=== PATIENT | male | born 2000 | race African-American/Black ===

== ENCOUNTER 2024-04-22 15:10 | Emergency (ER) | payer MEDICAID, OTHER ==
[~2024-04-22] VITALS: Ht 188 cm; Wt 84.1 kg
[2024-04-22 15:31] VITALS: BP 139/101; PULSE 82; RESP 17; O2SAT 98
--- NOTE | 2024-04-22 16:03 | DVH ---
EXAM: CT Abdomen and Pelvis Without Intravenous Contrast CLINICAL INDICATION: rectal pain TECHNIQUE: Axial computed tomography images of the abdomen and pelvis without intravenous contrast. This CT exam was performed using one or more of the following dose reduction techniques: automated exposure control, adjustment of the mA and/or kV according to patient size, and/or use of iterative r econstruction technique. CONTRAST: COMPARISON: None FINDINGS: LUNG BASES: Unremarkable. No mass. No consolidation. ABDOMEN: LIVER: Hepatomegaly with fatty infiltration. GALLBLADDER AND BILE DUCTS: Unremarkable. No calcified stones. No ductal dilation. PANCREAS: Unremarkable. No ductal dilation. SPLEEN: Unremarkable. No splenomegaly. ADRENALS: Unremarkable. No mass. KIDNEYS AND URETERS: Unremarkable. No stones within either kidney. No hydronephrosis. STOMACH AND BOWEL: Fecal retention in the colon consistent with constipation. No rectal mass or ab scess. However, evaluation is suboptimal secondary to lack of IV contrast. No obstruction. PELVIS: APPENDIX: The appendix measures up to 6 mm in diameter with minimal surrounding fat stranding. This could represent evolving or resolving acute appendicitis. BLADDER: Unremarkable. No stones. REPRODUCTIVE: Unremarkable as visualized. ABDOMEN and PELVIS: INTRAPERITONEAL SPACE: Unremarkable. No free air. No significant fluid collection. BONES/JOINTS: No acute fracture. No dislocation. SOFT TISSUES: Unremarkable. VASCULATURE: Unremarkable. No abdominal aortic aneurysm. LYMPH NODES: Unremarkable. No enlarged lymph nodes. OTHER FINDINGS: . . . .. IMPRESSION: 1. The appendix measures up to 6 mm in diameter with minimal surrounding fat stranding. This could r epresent evolving or resolving acute appendicitis. 2. Hepatomegaly with fatty infiltration. 3. Fecal retention in the colon consistent with constipation. 4. No obstructive uropathy. 5. No rectal mass or abscess. However, evaluation is suboptimal secondary to lack of IV contrast.
[2024-04-22 18:22] LABS: Basophils # (auto) 0.1 10 ^3/uL (0-0.2); Basophils % (auto) 0.8 % (0.0-2.0); Eosinophils # (auto) 0.1 10 ^3/uL (0-0.8); Eosinophils % (auto) 0.6 % (0.0-7.0); Hematocrit 46.3 % (41.0-53.0); Hemoglobin 15.6 g/dL (13.5-17.5); Lymphocytes # (auto) 1.9 10 ^3/uL (0.4-5.4); Lymphocytes % (auto) 19.5 % (10.0-50.0); Mean Corpuscular Hemoglobin 31.5 pg (28.0-32.0); Mean Corpuscular Hgb Conc. 33.7 g/dL (32.0-36.0); Mean Corpuscular Volume 93.4 fL (80.0-100.0); Monocytes # (auto) 0.5 10 ^3/uL (0-1.3); Monocytes % (auto) 5.6 % (0.0-12.0); Neutrophils # (auto) 7.2 10 ^3/uL (1.6-8.6); Neutrophils % (auto) 73.5 % (37.0-80.0); Nucleated Red Blood Cells % 0.1 %; Platelet Count (auto) 199 10^3/uL (140-450); Red Blood Cells 4.96 10^6/uL (4.5-5.90); Red Cell Distribution Width 15.2 % (11.8-14.3); White Blood Cell 9.8 10^3/uL (4.4-10.8)
[2024-04-22 18:40] LABS: Alanine Aminotransferase 12 U/L (7-40); Anion Gap 6 (5-15); Aspartate Aminotransferase 14 U/L (13-40); BUN/Creatinine Ratio 8.3 (10.0-20.0); Blood Urea Nitrogen 11 mg/dL (9-23); Calcium 9.7 mg/dL (8.7-10.4); Carbon Dioxide 29 mmol/L (20-31); Chloride 103 mmol/L (98-107); Glucose 93 mg/dL (74-106); Potassium 3.8 mmol/L (3.5-5.1); Sodium 138 mmol/L (136-145)
[2024-04-22 18:41] LABS: Albumin 4.8 g/dL (3.2-4.8); Bilirubin, Total 0.6 mg/dL (0.2-1.0)
[2024-04-22 18:47] LABS: Alkaline Phosphatase 41 U/L (46-116)
--- NOTE | 2024-04-22 23:43 | ED.PDOC ---
General HPI Comments 23-year-old male complaining of rectal pain with defecation and has been going on since February. [facility] he has been to urgent care and ER and told he had anal fissure. [facility] he has been dealing with intermittent constipation. States pain is only with defecation. [facility] over the last week has been having some body chills so he decided to come in and have self examined. Nothing makes it better, nothing makes it worse. Chief Complaint: Body Pain Time Seen by MD: 15:25 Reviewed notes: Nurses Notes Allergies: Coded Allergies: NO KNOWN ALLERGIES (Unverified , 04/22/24) Information Source: Patient Mode of Arrival: Ambulatory Severity: Mild Past Medical History PAST MEDICAL HISTORY: Denies Surgical History: Denies all surgeries Family History Family History: Reviewed,noncontributory to illness, No family hx of Cancer, No family hx of DM, No family hx of Heart ahsan, No family hx of HTN, No family hx ofKidney ahsan, No family hx of Liver ahsan, No family hx of Lung ahsan, No family hx of Stroke Constitutional: denies: chills, diaphoresis, fatigue, fever, malaise, sweats, weakness, others EENTM: denies: blurred vision, double vision, ear bleeding, ear discharge, ear drainage, ear pain, ear ringing, eye pain, eye redness, hearing loss, mouth pain, mouth swelling, nasal discharge, nose bleeding, nose congestion, nose pain, photophobia, tearing, throat pain, throat swelling, voice changes, others Respiratory: denies: cough, hemoptysis, orthopnea, SOB at rest, shortness of breath, SOB with excertion, stridor, wheezing, others Cardiovascular: denies: chest pain, dizzy spells, diaphoresis, Dyspnea on exertion, edema, irregular heart beat, left arm pain, lightheadedness, palpitations, PND, syncope, others Gastrointestinal: denies: abdomen distended, abdominal pain, blood streaked bowels, constipated, diarrhea, dysphagia, difficulty swallowing, hematemesis, melena, nausea, poor appetite, poor fluid intake, rectal bleeding, rectal pain, vomiting, others Genitourinary: denies: burning, dysuria, flank pain, frequency, hematuria, incontinence, penile discharge, penile sore, pain, testicle pain, testicle s welling, urgency, others Neurological: denies: dizziness, fainting, headache, left sided numbness, left sided weakness, numbness, paresthesia, pre-existing deficit, right sided numbness, right sided weakness, seizure, speech problems, tingling, tremors, weakness, others Musculoskeletal: denies: back pain, gout, joint pain, joint swelling, muscle pain, muscle stiffness, neck pain, others Integumetry: denies: bruises, change in color, change in hair/nails, dryness, laceration, lesions, lumps, rash, wounds, others Allergic/Immunocompromised: denies: Difficulty Healing, Frequent Infections, Hives, Itching, others Physical Exam General Appearance: No Apparent Distress, Normal HEENT: Normal ENT Inspection, Pharynx Normal, TMs Normal Neck: Full Range of Motion, Non-Tender, Normal, Normal Inspection Respiratory: Chest Non-Tender, Lungs Clear, No Accessory Muscle Use, No Respiratory Distress, Normal Breath Sounds Cardiovascular: No Edema, No JVD, No Murmur, No Gallop, Normal Peripheral Pulses, Regular Rate/Rhythm Breast Exam: Deferred Gastrointestinal: No Organomegaly, Non Tender, No Pulsatile Mass, Normal Bowel Sounds, Soft Genitalia: Deferred Pelvic: Deferred Rectal: Deferred Extremities: No calf tenderness, Normal capillary refill, Normal inspection, Normal range of motion, Non-tender, No pedal edema Musculoskeletal : Apperance: Normal Neurologic: Alert, motion picture film examiner II-XII nml as Tested, No Motor Deficits, Normal Affect, Normal Mood, No Sensory Deficits Cerebellar Function: Normal Reflexes: Normal Skin: Dry, Normal Color, Warm Lymphatic: No Adenopathy Was a procedure done? Was a procedure done?: No Differential Diagnosis Kidney stone (Female): N/A Penile/Scrotal: Epidiymitis, Prostatitis Other Differential Diagnosis Constipation, hemorrhoids, anal fissure rectal abscess X-Ray, Labs, Meds, VS Vital Signs Date Time Temp Pulse Resp B/P (MAP) Pulse Ox O2 Delivery O2 Flow Rate FiO2 04/22/24 15:31 98.7 82 17 139/101 (114) 98 Lab Test 04/22/24 18:08 Range/Units White Blood Count 9.8 4.4-10.8 10^3/uL Red Blood Count 4.96 4.5-5.90 10^6/uL Hemoglobin 15.6 13.5-17.5 g/dL Hematocrit 46.3 41.0-53.0 % Mean Corpuscular Volume 93.4 80.0-100.0 fL Mean Corpuscular Hemoglobin 31.5 28.0-32.0 pg Mean Corpuscular Hemoglobin Concent 33.7 32.0-36.0 g/dL Red Cell Distribution Width 15.2 H 11.8-14.3 % Platelet Count 199 140-450 10^3/uL Mean Platelet Volume 8.5 6.9-10.8 fL Neutrophils (%) (Auto) 73.5 37.0-80.0 % Lymphocytes (%) (Auto) 19.5 10.0-50.0 % Monocytes (%) (Auto) 5.6 0.0-12.0 % Eosinophils (%) (Auto) 0.6 0.0-7.0 % Basophils (%) (Auto) 0.8 0.0-2.0 % Neutrophils # (Auto) 7.2 1.6-8.6 10 ^3/uL Lymphocytes # (Auto) 1.9 0.4-5.4 10 ^3/uL Monocytes # (Auto) 0.5 0-1.3 10 ^3/uL Eosinophils # (Auto) 0.1 0-0.8 10 ^3/uL Basophils # (Auto) 0.1 0-0.2 10 ^3/uL Nucleated Red Blood Cells 0.1 % Sodium Level 138 136-145 mmol/L Potassium Level 3.8 3.5-5.1 mmol/L Chloride Level 103 98-107 mmol/L Carbon Dioxide Level 29 20-31 mmol/L Anion Gap 6 5-15 Blood Urea Nitrogen 11 9-23 mg/dL Creatinine 1.33 H 0.700-1.30 mg/dL Glomerular Filtration Rate Calc 77 >90 mL/min BUN/Creatinine Ratio 8.3 L 10.0-20.0 Serum Glucose 93 74-106 mg/dL Calcium Level 9.7 8.7-10.4 mg/dL Total Bilirubin 0.6 0.2-1.0 mg/dL Aspartate Amino Transferase (AST) 14 13-40 U/L Alanine Aminotransferase (ALT) 12 7-40 U/L Alkaline Phosphatase 41 L 46-116 U/L Total Protein 7.0 5.7-8.2 g/dL Albumin 4.8 3.2-4.8 g/dL X-Ray, Labs, Meds, VS Comment Questionable appendicitis versus resolving appendicitis. Patient had no abdominal pain. No white count. Patient was no response in triage. Presumed eloped Time of 1ST Reevaluation: 23:43 Reevaluation 1ST: Unchanged Patient Education/Counseling: Diagnosis, Treatment Family Education/Counseling: Diagnosis Departure 1 Departure Time of Disposition: 23:42 Impression: Primary Impression: Constipation Qualified Codes: K59.01 - Slow transit constipation Disposition: 07 LEFT AWOL/ELOPED Condition: Stable Discharged With: Self Critical Care Note Critical Care Time?: No Stability Stability form required: No Heart Score Heart Score: Heart Score Response (Comments) Value History N/A 0 EKG N/A 0 Age N/A 0 Risk Factors N/A 0 Troponin N/A 0 Total 0 JENNY MANCINI Apr 22, 2024 23:43
[2024-04-23] MEDS ORDERED: METH-1181 PO (16:46)
== END 2024-04-22 23:22 | disposition left against medical advice (07) ==
LOC: ER 15:10
DX: K59.00 Constipation, unspecified (principal)
CPT/HCPCS: 36415; 74176; 80053; 85025

== ENCOUNTER 2024-04-23 14:18 | Emergency (ER) | payer MEDICAID ==
[~2024-04-23] VITALS: Ht 188 cm; Wt 88.2 kg
[2024-04-23 15:45] LABS: Basophils # (auto) 0 10 ^3/uL (0-0.2); Basophils % (auto) 0.5 % (0.0-2.0); Eosinophils # (auto) 0 10 ^3/uL (0-0.8); Eosinophils % (auto) 0.6 % (0.0-7.0); Lymphocytes # (auto) 1.2 10 ^3/uL (0.4-5.4); Lymphocytes % (auto) 17.2 % (10.0-50.0); Mean Corpuscular Hemoglobin 30.7 pg (28.0-32.0); Mean Corpuscular Hgb Conc. 33.2 g/dL (32.0-36.0); Mean Corpuscular Volume 92.3 fL (80.0-100.0); Monocytes # (auto) 0.5 10 ^3/uL (0-1.3); Monocytes % (auto) 7.4 % (0.0-12.0); Neutrophils # (auto) 5.2 10 ^3/uL (1.6-8.6); Neutrophils % (auto) 74.3 % (37.0-80.0); Nucleated Red Blood Cells % 0.1 %; Platelet Count (auto) 201 10^3/uL (140-450); Red Cell Distribution Width 15.2 % (11.8-14.3)
[2024-04-23 16:03] LABS: Alanine Aminotransferase 10 U/L (7-40); Albumin 4.7 g/dL (3.2-4.8); Anion Gap 6 (5-15); BUN/Creatinine Ratio 8.4 (10.0-20.0); Blood Urea Nitrogen 9 mg/dL (9-23); Carbon Dioxide 29 mmol/L (20-31); Chloride 105 mmol/L (98-107); Glucose 74 mg/dL (74-106); Lipase 31 U/L (12-53); Potassium 4.2 mmol/L (3.5-5.1); Sodium 140 mmol/L (136-145)
[2024-04-23 16:04] LABS: Bilirubin, Total 0.8 mg/dL (0.2-1.0); Total Protein 6.8 g/dL (5.7-8.2)
[2024-04-23 16:05] LABS: Alkaline Phosphatase 40 U/L (46-116); Aspartate Aminotransferase 12 U/L (13-40)
[2024-04-23] MEDS: IOHEXOL 300 MG/ML 100ML BOTTLE IJ ONE (16:13)
--- NOTE | 2024-04-23 16:17 | DVH ---
Exam: CT CT AB PEL WITH IV CON ONLY History: possible appendicitis TECHNIQUE: A digital answering service telephone operator image was obtained. During the uneventful, intravenous administration of c ontrast material, multislice data acquisition was obtained through the abdomen and pelvis. The data s et was subsequently reconstructed into axial images. Images were reviewed on a work station using a c ombination of axial and multiplanar using a variety of window levels and settings. 100 cc of Omnipaqu e 300 contrast was injected intravenously. All CT scans at this medical facility are performed using dose modulation techniques as appropriate t o a performed exam including the following:Automated exposure control was utilized; adjustment of the MA and/or KV according to patient size; and use of iterative reconstruction technique. Radiation Dose Information: CT Dose: CTDI volume is 6 mGy. Dose-length product is 390 mGy*cm Comparison: None FINDINGS: Theliver, gallbladder, pancreas, kidneys, adrenal glands, and spleen appear within normal limits. There is no evidence of abdominal lymphadenopathy. There is no free fluid or free air. The stomach grossly appears unremarkable. The small and large bowel loops demonstrate normal caliber and appear within normal limits.. The appendix is not readily seen in the right lower quadrant abdom en. There are no secondary signs of acute appendicitis. The abdominal aorta and IVC appear within normal limits. The bladder appears within normal limits the degree of distention. Pelvic organs is unremarkable. Th ere is no evidence of a pelvic mass or lymphadenopathy. There is no free fluid collection. Lung bases are clear. There is no acute osseous abnormality. IMPRESSION: 1. There is no acute process in the abdomen and pelvis. HS:Y
[2024-04-23] MEDS ORDERED: METH-1181 PO (16:46)
--- NOTE | 2024-04-23 16:48 | ED.PDOC ---
General HPI Comments This is a 23-year-old male with a MHx presents with a chief complaint of abdominal pain Obstructive January hand pain originated at the periumbilical region. Symptoms lasted one week then resolved spontaneously. The patient then reports abdominal pain redeveloped in March and the pain was located to the right lower quadr ant. Pain waxed and waned with no specific pattern. Symptoms aggravated in April and developed a pulsating sensation throughout his entire body. Pulsating sensation comes and goes. Described as moderate. Chief Complaint: Body Pain Time Seen by MD: 15:11 Reviewed notes: Nurses Notes, Medications, Allergies Allergies: Coded Allergies: NO KNOWN ALLERGIES (Unverified , 04/22/24) Home Meds Active Scripts Methocarbamol (Methocarbamol) 500 Mg Tab, 500 MG PO TIDP PRN for 10 Days, #30 TAB 0 Refills Prov:JAY JAY GUTIERREZ WEB PRESS OPERATOR ASSISTANT 04/23/24 Information Source: Patient Mode of Arrival: Ambulatory Past Medical History PAST MEDICAL HISTORY: Denies Surgical History: Denies all surgeries Family History Family History: Reviewed,noncontributory to illness, No family hx of Cancer, No family hx of DM, No family hx of Heart ahsan, No family hx of HTN, No family hx ofKidney ahsan, No family hx of Liver ahsan, No family hx of Lung ahsan, No family hx of Stroke All Other Systems: Reviewed and Negative (Per HPI) Physical Exam General Appearance: No Apparent Distress, Normal HEENT: Normal ENT Inspection, Pharynx Normal, TMs Normal Neck: Full Range of Motion, Non-Tender, Normal, Normal Inspection Respiratory: Chest Non-Tender, Lungs Clear, No Accessory Muscle Use, No Respiratory Distress, Normal Breath Sounds Cardiovascular: No Edema, No JVD, No Murmur, No Gallop, Normal Peripheral Pulses, Regular Rate/Rhythm Breast Exam: Deferred Gastrointestinal: No Organomegaly, Non Tender, No Pulsatile Mass, Normal Bowel Sounds, Soft Genitalia: Deferred Pelvic: Deferred Rectal: Deferred Extremities: No calf tenderness, Normal capillary refill, Normal inspection, Normal range of motion, Non-tender, No pedal edema Musculoskeletal : Apperance: Normal Neurologic: Alert, rn radiation II-XII nml as Tested, No Motor Deficits, Normal Affect, Normal Mood, No Sensory Deficits Cerebellar Function: Normal Reflexes: Normal Skin: Dry, Normal Color, Warm Lymphatic: No Adenopathy Was a procedure done? Was a procedure done?: No Differential Diagnosis Kidney stone (Female): Other Kidney stone (Male): Appendicitis train, Bowel obstruction, Strain, Urinary obstruction, Urolithiasis, Other X-Ray, Labs, Meds, VS Vital Signs Date Time Temp Pulse Resp B/P (MAP) Pulse Ox O2 Delivery O2 Flow Rate FiO2 04/23/24 16:58 98.7 86 16 138/82 (100) 98 98.7 04/23/24 16:58 88 16 98 Room Air 04/23/24 14:32 98.7 85 16 139/84 (102) 98 Lab Test 04/23/24 15:28 Range/Units White Blood Count 7.0 # 4.4-10.8 10^3/uL Red Blood Count 5.20 4.5-5.90 10^6/uL Hemoglobin 16.0 13.5-17.5 g/dL Hematocrit 48.0 41.0-53.0 % Mean Corpuscular Volume 92.3 80.0-100.0 fL Mean Corpuscular Hemoglobin 30.7 28.0-32.0 pg Mean Corpuscular Hemoglobin Concent 33.2 32.0-36.0 g/dL Red Cell Distribution Width 15.2 H 11.8-14.3 % Platelet Count 201 140-450 10^3/uL Mean Platelet Volume 8.6 6.9-10.8 fL Neutrophils (%) (Auto) 74.3 37.0-80.0 % Lymphocytes (%) (Auto) 17.2 10.0-50.0 % Monocytes (%) (Auto) 7.4 0.0-12.0 % Eosinophils (%) (Auto) 0.6 0.0-7.0 % Basophils (%) (Auto) 0.5 0.0-2.0 % Neutrophils # (Auto) 5.2 1.6-8.6 10 ^3/uL Lymphocytes # (Auto) 1.2 0.4-5.4 10 ^3/uL Monocytes # (Auto) 0.5 0-1.3 10 ^3/uL Eosinophils # (Auto) 0 0-0.8 10 ^3/uL Basophils # (Auto) 0 0-0.2 10 ^3/uL Nucleated Red Blood Cells 0.1 % Sodium Level 140 136-145 mmol/L Potassium Level 4.2 3.5-5.1 mmol/L Chloride Level 105 98-107 mmol/L Carbon Dioxide Level 29 20-31 mmol/L Anion Gap 6 5-15 Blood Urea Nitrogen 9 9-23 mg/dL Creatinine 1.07 0.700-1.30 mg/dL Glomerular Filtration Rate Calc 99 >90 mL/min BUN/Creatinine Ratio 8.4 L 10.0-20.0 Serum Glucose 74 74-106 mg/dL Calcium Level 10.0 8.7-10.4 mg/dL Total Bilirubin 0.8 0.2-1.0 mg/dL Aspartate Amino Transferase (AST) 12 L 13-40 U/L Alanine Aminotransferase (ALT) 10 7-40 U/L Alkaline Phosphatase 40 L 46-116 U/L Total Protein 6.8 5.7-8.2 g/dL Albumin 4.7 3.2-4.8 g/dL Lipase 31 12-53 U/L PATIENT: TAMMI DUNCAN IIIACCT: [id number]: [id number] : 2000 LOC: ER ROOM / BED: / AGE / SEX: 23 / M ADM STATUS: REG ER SERVICE 1508 ORDERING PHYSICIAN: JAY JAY GUTIERREZ NP PROCEDURE(s): ABPLIV - CT AB PEL WITH IV CON ONLY REASON: possible appendicitis ORDER NUMBER(s): [id number], ACCESSION NUMBER(s): [id number] Exam: CT CT AB PEL WITH IV CON ONLY History: possible appendicitis TECHNIQUE: A digital supervisor extruding department image was obtained. During the uneventful, intravenous administration of contrast material, multislice data acquisition was obtained through the abdomen and pelvis. The data set was subsequently reconstructed into axial images. Images were reviewed on a work station using a combination of axial and multiplanar using a variety of window levels and settings. 100 cc of Omnipaque 300 contrast was injected intravenously. All CT scans at this medical facility are performed using dose modulation techniques as appropriate to a performed exam including the following:Automated exposure control was utilized; adjustment of the MA and/or KV according to patient size; and use of iterative reconstruction technique. Radiation Dose Information: CT Dose: CTDI volume is 6 mGy. Dose-length product is 390 mGy*cm Comparison: None FINDINGS: Theliver, gallbladder, pancreas, kidneys, adrenal glands, and spleen appear within normal limits. There is no evidence of abdominal lymphadenopathy. There is no free fluid or free air. The stomach grossly appears unremarkable. The small and large bowel loops demonstrate normal caliber and appear within normal limits.. The appendix is not readily seen in the right lower quadrant abdomen. There are no secondary signs of acute appendicitis. The abdominal aorta and IVC appear within normal limits. The bladder appears within normal limits the degree of distention. Pelvic organs is unremarkable. There is no evidence of a pelvic mass or lymphadenopathy. There is no free fluid collection. Lung bases are clear. There is no acute osseous abnormality. IMPRESSION: 1. There is no acute process in the abdomen and pelvis. HS:Y ATED BY: ABISAI LIRA MD DICTATED DATE/TIME: 04/23/241614 SIGNED BY: ABISAI LIRA MD SIGNED DATE/TIME: 04/23/241614 CC: X-Ray, Labs, Meds, VS Comment The patient presented to the Emergency Department with abdominal pain. Work up demonstrated no obvious source for the patient's symptoms. History and ER workup do not suggest appendicitis, AAA, bowel ischemia, bowel perforation, bowel obstruction, constipation, cholecystitis, diverticulitis/diverticulosis, pneumonia, urinary tract infection/pyelonephritis, hernia or other genitourinary etiology. On reevaluation the patient is feeling better and is afebrile. VSS. Abdomen exam is benign. No peritoneal signs. Pain is not out of proportion. No pulsatile mass. No tenderness at McBurneys point. WBC CMP Lipase WNL I informed the patient of the test results, and they are comfortable being discharged home. The patient is being discharged home with PMD follow up. The patient has been advised to return to the Emergency Room immediately if they develop worsening pain, fever, vomiting, or weakness. On reevaluation, patient had symptomatic improvement. Patient is stable for discharge at this time. External notes reviewed. Test results and diagnostic imaging interpreted. All diagnostic findings, discharge care, education and instructions provided Follow-up with PCP in 2 to 3 days Patient verbalized understanding and agreed to treatment plan Vital signs stable, afebrile, no acute distress noted Patient ambulatory with strong steady gait Advised to return precautions for any new or worsening symptoms, return to ER immediately for re-evaluation Patient is aware that the purpose of this visit was for an acute medical emergency requiring emergent stabilization. Chronic conditions, including malignancies have not been ruled out. Patient is instructed to follow up with PCP as directed and discharge instructions for continued care and workup. If unable to arrange follow-up, patient is to return to the emergency department for reassessment. Patient (parent or legal guardian if applicable) was given verbal and written discharge instructions and acknowledges understanding. Time of 1ST Reevaluation: 16:30 Reevaluation 1ST: Improved Patient Education/Counseling: Diagnosis, Treatment Family Education/Counseling: Diagnosis, Treatment Departure 1 Departure Time of Disposition: 16:45 Impression: Primary Impression: Abdominal pain Qualified Codes: R10.84 - Generalized abdominal pain Additional Impression: Muscle spasm Disposition: HOME / SELF CARE / HOMELESS Condition: Stable e-Prescriptions Methocarbamol (Methocarbamol) 500 Mg Tab 500 MG PO TIDP PRN for 10 Days, #30 TAB 0 Refills Prov: JAY JAY GUTIERREZ NP 04/23/24 Critical Care Note Critical Care Time?: No Stability Stability form required: No Heart Score Heart Score: Heart Score Response (Comments) Value History N/A 0 EKG N/A 0 Age N/A 0 Risk Factors N/A 0 Troponin N/A 0 Total 0 JAY JAY GUTIERREZ NP Apr 23, 2024 16:48
[2024-04-23 16:58] VITALS: BP 138/82; PULSE 88; RESP 16; TEMP 98.7; O2SAT 98
== END 2024-04-23 17:00 | disposition home or self-care (01) ==
LOC: ER 14:18
DX: R10.31 Right lower quadrant pain (principal); M62.838 Other muscle spasm
CPT/HCPCS: 36415; 74177; 80053; 83690; 85025; 99285; Q9967

== ENCOUNTER 2024-05-01 09:59 | Emergency (ER) | payer MEDICAID ==
[~2024-05-01] VITALS: Ht 188 cm; Wt 88.3 kg
[~2024-05-01 09:59] MED LIST: METH-1181 PO
[2024-05-01 10:38] LABS: Urine Bacteria None Seen /hpf (None Seen)
--- NOTE | 2024-05-01 10:49 | ED.PDOC ---
History of Present Illness HPI Comments This is a 23-year-old male who comes in with a chief complaint of left lower quadrant pain with some dysuria. The patient denies any fever or chills. The patient was seen for the pain since February 10 at various facilities. He states that the dysuria started in March of this year. He states he was an a ppointment with his primary care doctor but it is not for several weeks. The patient denies any fever or chills. Chief Complaint: Abdominal Pain Time Seen by MD: 10:16 Reviewed Notes: Nurses Notes, Medications, Allergies (No allergies to medications) Allergies: Coded Allergies: NO KNOWN ALLERGIES (Unverified , 04/22/24) Home Meds Active Scripts Methocarbamol (Methocarbamol) 500 Mg Tab, 500 MG PO TIDP PRN for 10 Days, #30 TAB 0 Refills Prov:JAY JAY GUTIERREZ DEB 04/23/24 Information Source: Patient Mode of Arrival: Ambulatory Severity: Mild Timing: Weeks Duration: Since onset Prehospital treatment: None Associated signs and symptoms Left lower quadrant pain as well as his dysuria Past Medical History PAST MEDICAL HISTORY: Denies Surgical History (Other): Right wrist surgery Family History Family History: Family hx of DM, Family hx of Cancer Social History Smoker: Cigarettes Alcohol: Occasionally Drugs: Marijuana Lives In: Home Constitutional: denies: chills, diaphoresis, fatigue, fever, malaise, sweats, weakness, others EENTM: denies: blurred vision, double vision, ear bleeding, ear discharge, ear drainage, ear pain, ear ringing, eye pain, eye redness, hearing loss, mouth pain, mouth swelling, nasal discharge, nose bleeding, nose congestion, nose pain, photophobia, tearing, throat pain, throat swelling, voice changes, others Respiratory: denies: cough, hemoptysis, orthopnea, SOB at rest, shortness of breath, SOB with excertion, stridor, wheezing, others Cardiovascular: denies: chest pain, dizzy spells, diaphoresis, Dyspnea on exertion, edema, irregular heart beat, left arm pain, lightheadedness, palpitat ions, PND, syncope, others Gastrointestinal: reports: abdominal pain; denies: abdomen distended, blood streaked bowels, constipated, diarrhea, dysphagia, difficulty swallowing, hematemesis, melena, nausea, poor appetite, poor fluid intake, rectal bleeding, rectal pain, vomiting, others Genitourinary: reports: dysuria; denies: burning, flank pain, frequency, hematuria, incontinence, penile discharge, penile sore, pain, testicle pain, testicle swelling, urgency, others Neurological: denies: dizziness, fainting, headache, left sided numbness, left sided weakness, numbness, paresthesia, pre-existing deficit, right sided numbness, right sided weakness, seizure, speech problems, tingling, tremors, weakness, others Musculoskeletal: denies: back pain, gout, joint pain, joint swelling, muscle pain, muscle stiffness, neck pain, others Integumetry: denies: bruises, change in color, change in hair/nails, dryness, laceration, lesions, lumps, rash, wounds, others Allergic/Immunocompromised: denies: Difficulty Healing, Frequent Infections, Hives, Itching, others Hematologic/Lymphatic: denies: anemia, blood clots, easy bleeding, easy bruising, swollen glands, others Endocrine: denies: excessive hunger, excessive sweating, excessive thirst, excessive urination, flushing, intolerance to cold, intolerance to heat, u nexplained weight gain, unexplained weight loss, others Psychiatric: denies: anxiety, bipolar disorder, depression, hopeless, panic disorder, schizophrenia, sleepless, suicidal, others Physical Exam General Appearance: No Apparent Distress HEENT: Normal ENT Inspection, Pharynx Normal, TMs Normal Neck: Full Range of Motion, Non-Tender, Normal, Normal Inspection Respiratory: Chest Non-Tender, Lungs Clear, No Accessory Muscle Use, No Respiratory Distress, Normal Breath Sounds Cardiovascular: No Edema, No JVD, No Murmur, No Gallop, Normal Peripheral Pulses, Regular Rate/Rhythm Breast Exam: Deferred Gastrointestinal: No Organomegaly, Non Tender, No Pulsatile Mass, Normal Bowel Sounds, Soft Genitalia: Deferred Pelvic: Deferred Rectal: Deferred Extremities: No calf tenderness, Normal capillary refill, Normal inspection, Normal range of motion, Non-tender, No pedal edema Musculoskeletal : Apperance: Normal Neurologic: Alert, air cargo specialist II-XII nml as Tested, No Motor Deficits, Normal Affect, Normal Mood, No Sensory Deficits Cerebellar Function: Normal Reflexes: Normal Skin: Dry, Normal Color, Warm Lymphatic: No Adenopathy Was a procedure done? Was a procedure done?: No Differential Dx Considerations may include: Dysuria, UTI X-Ray, Labs, Meds, VS Vital Signs Date Time Temp Pulse Resp B/P (MAP) Pulse Ox O2 Delivery O2 Flow Rate FiO2 05/01/24 10:27 97.0 71 18 127/83 (98) 100 Lab Test 05/01/24 10:22 Range/Units Urine Color Colorless Yellow Urine Clarity Clear Clear Urine pH 6.0 5.0-9.0 Urine Specific [place] 1.006 1.001-1.035 Urine Protein Negative Negative Urine Ketones Negative Negative Urine Blood Negative Negative /uL Urine Nitrite Negative Negative Urine Bilirubin Negative Negative Urine Urobilinogen Normal Negative mg/dL Urine Leukocyte Esterase Negative Negative /uL Urine RBC 1 0 - 3 /hpf Urine Microscopic WBC < 1 0-3 /HPF Urine Squamous Epithelial Cells None seen <5 /hpf Urine Bacteria None seen None Seen /hpf Urine Glucose Normal Normal mg/dL The urine test shows: There is no sign of any infection at this time We spoke with the patient's primary care doctor's office and the patient has a appointment on 05/15 at 1:30 a.m. in the afternoon We did relate this to the patient. Patient was discharged Time of 1ST Reevaluation: 10:48 Reevaluation 1ST: Improved Patient Education/Counseling: Diagnosis, Treatment, Prognosis, Need For Follow Up Family Education/Counseling: No Family Present Departure 1 Departure Time of Disposition: 11:12 Impression: Primary Impression: Dysuria Disposition: 01 HOME / SELF CARE / HOMELESS Condition: Fair Discharged With: Self Critical Care Note Critical Care Time?: No Stability Stability form required: No Heart Score Heart Score: Heart Score Response (Comments) Value History N/A 0 EKG N/A 0 Age N/A 0 Risk Factors N/A 0 Troponin N/A 0 Total 0 SAQIB CAROLINA MD May 01, 2024 10:49
[2024-05-01 10:56] LABS: Urine Blood Negative /uL (Negative); Urine Clarity Clear (Clear); Urine Color Colorless (Yellow); Urine Protein, UAD Negative (Negative); Urine Specific Gravity 1.006 (1.001-1.035); Urine Squamous Epithelial Cell None Seen /hpf (<5); Urine Urobilinogen Normal (Negative); Urine WBC < 1 /HPF (0-3)
[2024-05-01 12:35] VITALS: BP 134/75; PULSE 64; RESP 18; TEMP 97.4; O2SAT 98
== END 2024-05-01 12:54 | disposition home or self-care (01) ==
LOC: ER 09:59
DX: R30.0 Dysuria (principal); F17.210 Nicotine dependence, cigarettes, uncomplicated; Z98.890 Other specified postprocedural states; Z79.899 Other long term (current) drug therapy
CPT/HCPCS: 81001

== ENCOUNTER → 2024-05-08 | Outpatient (CLI) | payer MEDICAID ==
[2024-05-08 13:16] LABS: Urine Bacteria None Seen /hpf (None Seen)
[2024-05-08 13:27] LABS: Basophils # (auto) 0 10 ^3/uL (0-0.2); Basophils % (auto) 0.6 % (0.0-2.0); Eosinophils # (auto) 0 10 ^3/uL (0-0.8); Eosinophils % (auto) 0.1 % (0.0-7.0); Hematocrit 50.6 % (41.0-53.0); Hemoglobin 16.8 g/dL (13.5-17.5); Lymphocytes # (auto) 0.9 10 ^3/uL (0.4-5.4); Lymphocytes % (auto) 13.6 % (10.0-50.0); Mean Corpuscular Hemoglobin 30.9 pg (28.0-32.0); Mean Corpuscular Hgb Conc. 33.1 g/dL (32.0-36.0); Mean Corpuscular Volume 93.3 fL (80.0-100.0); Monocytes # (auto) 0.3 10 ^3/uL (0-1.3); Monocytes % (auto) 4.3 % (0.0-12.0); Neutrophils # (auto) 5.1 10 ^3/uL (1.6-8.6); Neutrophils % (auto) 81.4 % (37.0-80.0); Platelet Count (auto) 178 10^3/uL (140-450); Red Blood Cells 5.42 10^6/uL (4.5-5.90); Red Cell Distribution Width 14.8 % (11.8-14.3); White Blood Cell 6.3 10^3/uL (4.4-10.8)
[2024-05-08 14:07] LABS: Alanine Aminotransferase 11 U/L (7-40); Anion Gap 8 (5-15); BUN/Creatinine Ratio 4.9 (10.0-20.0); Calcium 10.2 mg/dL (8.7-10.4); Carbon Dioxide 28 mmol/L (20-31); Chloride 103 mmol/L (98-107); Glucose 99 mg/dL (74-106); LDL Cholesterol 92 mg/dL (< 100); Potassium 4.3 mmol/L (3.5-5.1); Sodium 139 mmol/L (136-145); Triglycerides 54 mg/dL (< 150)
[2024-05-08 14:08] LABS: Cholesterol 174 mg/dL (< 200); Total Protein 7.7 g/dL (5.7-8.2)
[2024-05-08 14:11] LABS: Albumin 5.1 g/dL (3.2-4.8); Alkaline Phosphatase 43 U/L (46-116); Aspartate Aminotransferase 12 U/L (13-40); Bilirubin, Total 1.6 mg/dL (0.2-1.0); Blood Urea Nitrogen 7 mg/dL (9-23); HDL Cholesterol 70 mg/dL (40-59)
[2024-05-08 14:13] LABS: Urine Blood Negative /uL (Negative); Urine Clarity Clear (Clear); Urine Color Yellow (Yellow); Urine Mucus FEW (None Seen); Urine Protein, UAD TRACE (Negative); Urine Specific Gravity 1.025 (1.001-1.035); Urine Squamous Epithelial Cell None Seen /hpf (<5); Urine Urobilinogen 2 mg/dL (Negative); Urine WBC 1 /HPF (0-3)
[2024-05-09 08:07] LABS: HSV 1 IgG Antibody Non Reactive (Non Reactive); HSV 2 IgG Antibody Non Reactive (Non Reactive); RPR Non Reactive (Non Reactive)
[2024-05-09 11:06] LABS: Hepatitis A Ab IgM Negative; Hepatitis B Core IgM Negative (Negative); Hepatitis B Surface Antigen Negative (Negative)
[2024-05-10 06:07] LABS: Chlamydia Trachomatis, NAA Negative (Negative); Neisseria gonorrhoeae, NAA Negative (Negative)
== END | disposition home or self-care (01) ==
LOC: LAB 12:52
PROVIDERS: ATTEND Nurse Practitioner Family
DX: Z00.01 Encounter for general adult medical examination with abnormal findings (principal); N48.89 Other specified disorders of penis; R10.9 Unspecified abdominal pain; Z20.2 Contact with and (suspected) exposure to infections with a predominantly sexual mode of transmission
CPT/HCPCS: 36415; 80053; 80061; 81001; 84153; 84443; 85025; 86592; 86695; 86696; 86703; 86705; 86709; 86803; 87340

== ENCOUNTER 2024-05-29 19:39 | Inpatient (IN) | payer MEDICAID ==
[~2024-05-29] VITALS: Ht 188 cm; Wt 88.6 kg
[2024-05-29 21:33] LABS: Basophils # (auto) 0.1 10 ^3/uL (0-0.2); Basophils % (auto) 0.9 % (0.0-2.0); Eosinophils # (auto) 0.1 10 ^3/uL (0-0.8); Eosinophils % (auto) 0.8 % (0.0-7.0); Hemoglobin 16.5 g/dL (13.5-17.5); Lymphocytes # (auto) 1.1 10 ^3/uL (0.4-5.4); Lymphocytes % (auto) 17.4 % (10.0-50.0); Mean Corpuscular Hemoglobin 31.1 pg (28.0-32.0); Mean Corpuscular Hgb Conc. 33.7 g/dL (32.0-36.0); Mean Corpuscular Volume 92.4 fL (80.0-100.0); Monocytes # (auto) 0.4 10 ^3/uL (0-1.3); Monocytes % (auto) 5.9 % (0.0-12.0); Neutrophils # (auto) 4.8 10 ^3/uL (1.6-8.6); Nucleated Red Blood Cells % 0.1 %; Platelet Count (auto) 173 10^3/uL (140-450); Red Cell Distribution Width 14.6 % (11.8-14.3); White Blood Cell 6.4 10^3/uL (4.4-10.8)
[2024-05-29 21:37] LABS: Sodium 138 mmol/L (136-145)
[2024-05-29 21:38] LABS: Anion Gap 6 (5-15); Carbon Dioxide 23 mmol/L (20-31)
[2024-05-29 21:39] LABS: Calcium 9.8 mg/dL (8.7-10.4)
[2024-05-29 21:43] LABS: Glucose 105 mg/dL (74-106)
[2024-05-29 21:44] LABS: BUN/Creatinine Ratio 8.3 (10.0-20.0); Blood Urea Nitrogen 13 mg/dL (9-23)
[2024-05-29 21:45] LABS: Chloride 109 mmol/L (98-107)
--- NOTE | 2024-05-29 22:45 | ED.PDOC ---
GI ASSESSMENT HPI Comments 23 YEAR OLD MALE PRESENTS TO ER WITH COMPLAINTS OF ABDOMINAL PAIN X 4 MONTHS. PATIENT REPORTS HE HAS BEEN EXPERIENCING PERSISTENT RIGHT UPPER QUADRANT ABDOMINAL PAIN WITH RADIATION TOWARDS RIGHT FLANK X 4 MONTHS. HE RATES HIS CURRENT PAIN A 12/20. NOTES HE WAS SENT TO ER FOR ADMISSION BY DR. LOUIS. PATIENT ALSO REPORTS SWOLLEN LYMPH NODES TO NECK X "4 MONTHS". 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 04/23/24 Information Source: Patient Mode of Arrival: Ambulatory Past Medical History PAST MEDICAL HISTORY: Denies Surgical History: Denies all surgeries Family History Family History: Family hx of DM, Family hx of Cancer Social History Smoker: Cigarettes, Less Than 1 Pack/Day Alcohol: Occasionally Drugs: Marijuana Lives In: Home Constitutional: denies: chills, diaphoresis, fatigue, fever, malaise, sweats, weakness, others EENTM: denies: blurred vision, double vision, ear bleeding, ear discharge, ear drainage, ear pain, ear ringing, eye pain, eye redness, hearing loss, mouth pain, mouth swelling, nasal discharge, nose bleeding, nose congestion, nose pain, photophobia, tearing, throat pain, throat swelling, voice changes, others Respiratory: denies: cough, hemoptysis, orthopnea, SOB at rest, shortness of breath, SOB with excertion, stridor, wheezing, others Cardiovascular: denies: chest pain, dizzy spells, diaphoresis, Dyspnea on exertion, edema, irregular heart beat, left arm pain, lightheadedness, palpitations, PND, syncope, others Gastrointestinal: reports: others ( STATED IN HPI) Genitourinary: denies: burning, dysuria, flank pain, frequency, hematuria, incontinence, penile discharge, penile sore, pain, testicle pain, testicle swelling, urgency, others Neurological: denies: dizziness, fainting, headache, left sided numbness, left sided weakness, numbness, paresthesia, pre-existing deficit, right sided numbness, right sided weakness, seizure, speech problems, tingling, tremors, weakness, others Musculoskeletal: denies: back pain, gout, joint pain, joint swelling, muscle pain, muscle stiffness, neck pain, others Integumetry: denies: bruises, change in color, change in hair/nails, dryness, laceration, lesions, lumps, rash, wounds, others Allergic/Immunocompromised: denies: Difficulty Healing, Frequent Infections, Hives, Itching, others Hematologic/Lymphatic: denies: anemia, blood clots, easy bleeding, easy bruising, swollen glands, others Endocrine: denies: excessive hunger, excessive sweating, excessive thirst, excessive urination, flushing, intolerance to cold, intolerance to heat, unexplained weight gain, unexplained weight loss, others Psychiatric: denies: anxiety, bipolar disorder, depression, hopeless, panic disorder, schizophrenia, sleepless, suicidal, others Physical Exam General Appearance: No Apparent Distress HEENT: PERRL/EOMI Neck: Full Range of Motion, Non-Tender, Normal Respiratory: Chest Non-Tender, Lungs Clear, No Accessory Muscle Use, No Respiratory Distress, Normal Breath Sounds Cardiovascular: No Murmur, No Gallop, Regular Rate/Rhythm Breast Exam: Deferred Gastrointestinal: No Organomegaly, No Pulsatile Mass, Normal Bowel Sounds, RUQ (SLIGHT TTP TO RIGHT UPPER QUADRANT ABDOMEN NOTED. NO REBOUND/GUARDING NOTED. NO HERNIA/MASSES/SKIN CHANGES NOTED) Genitalia: Deferred Pelvic: Deferred Rectal: Deferred Extremities: Normal capillary refill, Normal range of motion Musculoskeletal : Extremity Location: Back (TTP TO RIGHT FLANK NOTED. NO CVA TENDERNESS NOTED BILATERALLY) Neurologic: Alert, clay transporter II-XII nml as Tested, No Motor Deficits, Normal Affect, Normal Mood, No Sensory Deficits Cerebellar Function: Normal Reflexes: Normal Skin: Dry, Normal Color, Warm Lymphatic: No Adenopathy Was a procedure done? Was a procedure done?: No Sedation Sedation?: No GI differential Dx Differential Diagnosis: Appendicitis, GI hemorrhage, Ischemic Bowel, Trauma intraabdominal X-Ray, Labs, Meds, VS Vital Signs Date Time Temp Pulse Resp B/P (MAP) Pulse Ox O2 Delivery O2 Flow Rate FiO2 3/19/25 23:54 61 18 110/77 (88) 98 05/29/24 21:25 98.9 75 18 137/85 (102) 97 98.9 05/29/24 21:25 75 18 97 Room Air 05/29/24 20:29 98.9 75 18 137/85 (102) 97 98.9 Lab Test 05/29/24 22:45 05/29/24 21:16 Range/Units Urine Color Light-yellow Yellow Urine Clarity Clear Clear Urine pH 6.0 5.0-9.0 Urine Specific [place] 1.026 1.001-1.035 Urine Protein Negative Negative Urine Ketones Negative Negative Urine Blood Negative Negative /uL Urine Nitrite Negative Negative Urine Bilirubin Negative Negative Urine Urobilinogen 2 H Negative mg/dL Urine Leukocyte Esterase Negative Negative /uL Urine RBC 3 0 - 3 /hpf Urine Microscopic WBC < 1 0-3 /HPF Urine Squamous Epithelial Cells None seen <5 /hpf Urine Bacteria None seen None Seen /hpf Urine Mucus Few None Seen Urine Glucose Normal Normal mg/dL White Blood Count 6.4 4.4-10.8 10^3/uL Red Blood Count 5.30 4.5-5.90 10^6/uL Hemoglobin 16.5 13.5-17.5 g/dL Hematocrit 49.0 41.0-53.0 % Mean Corpuscular Volume 92.4 80.0-100.0 fL Mean Corpuscular Hemoglobin 31.1 28.0-32.0 pg Mean Corpuscular Hemoglobin Concent 33.7 32.0-36.0 g/dL Red Cell Distribution Width 14.6 H 11.8-14.3 % Platelet Count 173 140-450 10^3/uL Mean Platelet Volume 8.8 6.9-10.8 fL Neutrophils (%) (Auto) 75.0 37.0-80.0 % Lymphocytes (%) (Auto) 17.4 10.0-50.0 % Monocytes (%) (Auto) 5.9 0.0-12.0 % Eosinophils (%) (Auto) 0.8 0.0-7.0 % Basophils (%) (Auto) 0.9 0.0-2.0 % Neutrophils # (Auto) 4.8 1.6-8.6 10 ^3/uL Lymphocytes # (Auto) 1.1 0.4-5.4 10 ^3/uL Monocytes # (Auto) 0.4 0-1.3 10 ^3/uL Eosinophils # (Auto) 0.1 0-0.8 10 ^3/uL Basophils # (Auto) 0.1 0-0.2 10 ^3/uL Nucleated Red Blood Cells 0.1 % Sodium Level 138 136-145 mmol/L Potassium Level 4.0 3.5-5.1 mmol/L Chloride Level 109 H 98-107 mmol/L Carbon Dioxide Level 23 20-31 mmol/L Anion Gap 6 5-15 Blood Urea Nitrogen 13 9-23 mg/dL Creatinine 1.56 H 0.700-1.30 mg/dL Glomerular Filtration Rate Calc 63 >90 mL/min BUN/Creatinine Ratio 8.3 L 10.0-20.0 Serum Glucose 105 74-106 mg/dL Calcium Level 9.8 8.7-10.4 mg/dL Aspartate Amino Transferase (AST) 15 13-40 U/L Alanine Aminotransferase (ALT) 10 7-40 U/L Alkaline Phosphatase 50 46-116 U/L Troponin I High Sensitivity Pending Current Medications Medications (Trade) Dose Ordered Sig/Apryl Route Start Time Stop Time Status Last Admin Sodium Chloride 1,000 ml @ 1,000 mls/hr Q1H ONCE IV 05/29/24 22:30 05/29/24 23:29 DC 05/29/24 23:53 Ketorolac Tromethamine (Toradol Injection) 30 mg ONCE ONCE IV 05/29/24 23:15 05/29/24 23:16 DC 05/29/24 23:53 PATIENT: TAMMI DUNCAN IIIACCT: [id number]: [id number] : 2000 LOC: ER ROOM / BED: / AGE / SEX: 23 / M ADM STATUS: REG ER SERVICE ORDERING PHYSICIAN: MARGIE HOLLY PROCEDURE(s): ABPL - CT AB PEL WO CON-NO ORAL OR IV REASON: RIGHT UPPER QUADRANT ABDOMINAL PAIN/RIGHT FLANK PAIN ORDER NUMBER(s): [id number], ACCESSION NUMBER(s): [id number] Exam: CT CT AB PEL WO CON-NO ORAL OR IV History: RIGHT UPPER QUADRANT ABDOMINAL PAIN/RIGHT FLANK PAIN Comparison Study: CT CT AB PEL WO CON-NO ORAL OR IV on DOS: 04/22/24 Technique: Multidetector spiral CT of the abdomen was performed from lung bases to pubic symphysis. Imaging was performed without IV contrast. Axial, coronal and sagittal multiplanar reformats were obtained from the axial data set by the technologist. Radiation Dose : 1. Abdomen/Pelvis: CTDIvol 6.47 mGy, DLP 368.96 mGy*cm. Findings: Evaluation of solid organs is limited due to lack of intravenous contrast use. Lung Bases: No acute or significant lung base finding. Normal heart size. No pleural or pericardial effusion. Liver: The liver is normal in size. No focal lesions. Gallbladder and Biliary Tree: Unremarkable Spleen: Unremarkable Pancreas: The pancreas is grossly normal in appearance. Adrenal Glands: Unremarkable Kidneys: Kidneys are grossly normal without calculi or hydronephrosis. Bladder: Grossly unremarkable for degree of distention. Bowel: The stomach is grossly normal in appearance. Small bowel and colon are normal in caliber and distribution. Normal appendix is visualized in the right lower quadrant without findings of appendicitis. Ascites: Absent Lymphadenopathy: No mesenteric, retroperitoneal or periportal lymphadenopathy. Abdominal Wall and Mesentery: Unremarkable. Vasculature: The visualized abdominal aorta is normal in size and caliber. Evaluation of abdominal and pelvic vessels is limited due to lack of intravenous contrast. Pelvic Organs: Unremarkable Musculoskeletal: No aggressive focal bony lesions, acute fractures or dislocation. IMPRESSION: 1. No acute abdominal or pelvic findings. Radiation optimization: All CT scans at this facility use at least one of these dose optimization techniques: automated exposure control mA and/or kV adjustment per patient size (includes targeted exams where dose is matched to clinical indication) or iterative reconstruction. ATED BY: NOEL NINA MD DICTATED DATE/TIME: 05/29/242307 SIGNED BY: NOEL NINA MD SIGNED DATE/TIME: 05/29/242307 PATIENT: TAMMI DUNCAN IIIACCT: [id number] UNIT: [id number] : 2000 LOC: ER ROOM / BED: / AGE / SEX: 23 / M ADM STATUS: REG ER SERVICE 28 ORDERING PHYSICIAN: MARGIE HOLLY PROCEDURE(s): NKICT - NECK WITHOUT CONTRAST REASON: NECK SWELLING/PAIN ORDER NUMBER(s): [id number], ACCESSION NUMBER(s): [id number] EXAM: CT NECK WITHOUT CONTRAST INDICATION: NECK SWELLING/PAIN Exam Date: 05/29/2024 10:39 PM COMPARISON: None TECHNIQUE: CT of the neck with intravenous contrast. RADIATION DOSE: CTDIvol: 23.48 mGy, DLP: 798.58 mGy*cm CONTRAST: Type of contrast: Omnipaque Contrast injected: 100 ml FINDINGS: There is no evidence of cervical mass lesion, pathologically enlarged lymph nodes or fluid collection. The fat planes of the neck appear intact. The airway and larynx are unremarkable. The parotid, submandibular and thyroid glands are unremarkable. The vascular structures of the neck appear patent. The visualized lung apices are clear. The limited visualized portions of the brain are unremarkable. The osseous structures are unremarkable. IMPRESSION: 1. No evidence of cervical mass lesion, pathologically enlarged lymph nodes or fluid collection. ATED BY: NOEL NINA MD DICTATED DATE/TIME: 05/29/242303 SIGNED BY: NOEL INNA MD SIGNED DATE/TIME: 05/29/242303 CC: CBC REVIEWED WITHOUT ANY SIGNIFICANT ABNORMALITIES BMP REVIEWED-GFR 63, CREATININE 1.56 URINALYSIS REVIEWED WITHOUT ANY SIGNIFICANT ABNORMALITIES CT ABDOMEN/PELVIS WITHOUT CONTRAST REVIEWED CT NECK WITHOUT CONTRAST REVIEWED URINALYSIS ORDERED HEP-LOCK IV ORDERED NS 1 LITER IV ORDERED TORADOL 30 MG IV ORDERED PATIENT ADMITTED TO HOSPITALIST FOR INTRACTABLE ABDOMINAL PAIN/ACUTE KIDNEY INJURY Time of 1ST Reevaluation: 22:24 Reevaluation 1ST: N/A Patient Education/Counseling: Diagnosis, Treatment, Prognosis, Need For Follow Up Family Education/Counseling: Diagnosis, Treatment, Prognosis, Need For Follow Up Departure 1 Departure Time of Disposition: 22:40 Impression: Primary Impression: Intractable abdominal pain Additional Impression: DWIGHT (acute kidney injury) Disposition: ADMITTED INPATIENT Condition: Stable Discharged With: Self Critical Care Note Critical Care Time?: No Stability Stability form required: No Heart Score Heart Score: Heart Score Response (Comments) Value History N/A 0 EKG N/A 0 Age N/A 0 Risk Factors N/A 0 Troponin N/A 0 Total 0 MARGIE HOLLY May 29, 2024 22:45
[2024-05-29 22:51] LABS: Urine Bacteria None Seen /hpf (None Seen)
[2024-05-29 23:06] LABS: Urine Blood Negative /uL (Negative); Urine Clarity Clear (Clear); Urine Color Light-Yellow (Yellow); Urine Mucus FEW (None Seen); Urine Protein, UAD Negative (Negative); Urine Specific Gravity 1.026 (1.001-1.035); Urine Squamous Epithelial Cell None Seen /hpf (<5); Urine Urobilinogen 2 mg/dL (Negative); Urine WBC < 1 /HPF (0-3)
--- NOTE | 2024-05-29 23:07 | DVH ---
EXAM: CT NECK WITHOUT CONTRAST INDICATION: NECK SWELLING/PAIN Exam Date: 05/29/2024 10:39 PM COMPARISON: None TECHNIQUE: CT of the neck with intravenous contrast. RADIATION DOSE: CTDIvol: 23.48 mGy, DLP: 798.58 mGy*cm CONTRAST: Type of contrast: Omnipaque Contrast injected: 100 ml FINDINGS: There is no evidence of cervical mass lesion, pathologically enlarged lymph nodes or fluid collection . The fat planes of the neck appear intact. The airway and larynx are unremarkable. The parotid, submandibular and thyroid glands are unremarkable. The vascular structures of the neck appear patent. The visualized lung apices are clear. The limited visualized portions of the brain are unremarkable. The osseous structures are unremarkable. IMPRESSION: 1. No evidence of cervical mass lesion, pathologically enlarged lymph nodes or fluid collection.
--- NOTE | 2024-05-29 23:10 | DVH ---
Exam: CT CT AB PEL WO CON-NO ORAL OR IV History: RIGHT UPPER QUADRANT ABDOMINAL PAIN/RIGHT FLANK PAIN Comparison Study: CT CT AB PEL WO CON-NO ORAL OR IV on DOS: 04/22/24 Technique: Multidetector spiral CT of the abdomen was performed from lung bases to pubic symphysis. Imaging was performed without IV contrast. Axial, coronal and sagittal multiplanar reformats were ob tained from the axial data set by the technologist. Radiation Dose : 1. Abdomen/Pelvis: CTDIvol 6.47 mGy, DLP 368.96 mGy*cm. Findings: Evaluation of solid organs is limited due to lack of intravenous contrast use. Lung Bases: No acute or significant lung base finding. Normal heart size. No pleural or pericardial effusion. Liver: The liver is normal in size. No focal lesions. Gallbladder and Biliary Tree: Unremarkable Spleen: Unremarkable Pancreas: The pancreas is grossly normal in appearance. Adrenal Glands: Unremarkable Kidneys: Kidneys are grossly normal without calculi or hydronephrosis. Bladder: Grossly unremarkable for degree of distention. Bowel: The stomach is grossly normal in appearance. Small bowel and colon are normal in caliber and d istribution. Normal appendix is visualized in the right lower quadrant without findings of appendici tis. Ascites: Absent Lymphadenopathy: No mesenteric, retroperitoneal or periportal lymphadenopathy. Abdominal Wall and Mesentery: Unremarkable. Vasculature: The visualized abdominal aorta is normal in size and caliber. Evaluation of abdominal a nd pelvic vessels is limited due to lack of intravenous contrast. Pelvic Organs: Unremarkable Musculoskeletal: No aggressive focal bony lesions, acute fractures or dislocation. IMPRESSION: 1. No acute abdominal or pelvic findings. Radiation optimization: All CT scans at this facility use at least one of these dose optimization guerrero hniques: automated exposure control mA and/or kV adjustment per patient size (includes targeted exam s where dose is matched to clinical indication) or iterative reconstruction.
[2024-05-29 23:41] LABS: Alanine Aminotransferase 10 U/L (7-40); Alkaline Phosphatase 50 U/L (46-116); Aspartate Aminotransferase 15 U/L (13-40)
[2024-05-29] MEDS: SODIUM CHLORIDE 0.9% 1,000 ML IV ONE (23:53)
[2024-05-29] MEDS: KETOROLAC TROMETH 30 MG/ML 1ML VIAL IV ONE (23:53)
--- NOTE | 2024-05-30 01:36 | DVHHPRES ---
History of Present Illness Resident Creating Document: YANIRA AGUIRRE Reason for Visit: right upper quarant pain History of Present Illness Patient is a 23 year male who presented to the ED with a chief complaint of abdominal pain for the past 4 months. Per patient, this pain has been on going for the past 40. It is mainly located in the RUQ but is migratory. Sometimes to the RLQ or to the LUQ. He has had couple of ED and urgent visit for this same pain but nothing had been concluded as the etiology. Currently, he presented to urgent care with similar problem. Urinalysis reveal UTI and patient was given Bactrim. He reported feeling better with the UTI symptoms; however, his RUQ pain became worse prompting a visit to the ED. He denies chest pain, sick contact, viral infection (like EBV), anabolic drug use and he sexually active with his girlfriend only. Overall patient is hemodynamically stable and all his labs and imaging studies are unremarkable. 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 Review of Systems Review of Systems Constitutional: Denies fever no chills no feeling of malaise HEENT: Denies headache, ear pain, ear discharges, conjunctivitis, nasal discharge throat pain Cardiovascular: Denies chest pain, palpitation, orthopnea, PND, or pedal edema Respiratory: Denies shortness of breath, cough cough, sputum production, hemoptysis, GI: RUQ > LUQ> RLQ, denies nausea, vomiting, diarrhea, hematemesis, hematochezia, : Denies frequency, urgency, hematuria; Positive right inguinal lymphnodes Endocrine: Denies unintentional weight gain or weight loss, feeling of hot flashes, Gabriel: Denies easy bruising, bleeding disorders, epistaxis Musculoskeletal: Denies joint pains, muscle aches Psych: No evidence of depression, montrell, suicidal ideation Allergies: Coded Allergies: NO KNOWN ALLERGIES (Unverified , 04/22/24) Exam Vital Signs Vital Signs Date Time Temp Pulse Resp B/P (MAP) Pulse Ox O2 Delivery O2 Flow Rate FiO2 05/29/24 23:54 61 18 110/77 (88) 98 05/29/24 21:25 98.9 98.9 05/29/24 21:25 Room Air Exam General Appearance: Alert, Oriented X3, Cooperative, No acute distress HEENT: Atraumatic, PERRLA, EOMI, Mucous membrane moist/pink Respiratory: Clear to auscultation, Normal air movement Cardiovascular: Regular rate, Normal S1, Normal S2, No murmurs, no chest wall tenderness Abdominal: Tenderness in the RUQ> RLQ and LUQ; bowel sounds present, no scars noted Extremities: No clubbing, No cyanosis, No edema, Normal pulses, No tenderness/s welling; Positive right inguinal lymphnodes Skin: No rashes, No breakdown, No significant lesion Neuro: Normal gait, Normal speech, Strength at 5/5 X4 ext, Normal tone, Sensation intact, Cranial nerves 3-12 NL, Reflexes 2+ Psych/Mental Status: Mental status NL, Mood NL Labs/Xrays Labs Test 05/29/24 22:45 05/29/24 21:16 Range/Units Urine Color Light-yellow Yellow Urine Clarity Clear Clear Urine pH 6.0 5.0-9.0 Urine Specific [place] 1.026 1.001-1.035 Urine Protein Negative Negative Urine Ketones Negative Negative Urine Blood Negative Negative /uL Urine Nitrite Negative Negative Urine Bilirubin Negative Negative Urine Urobilinogen 2 H Negative mg/dL Urine Leukocyte Esterase Negative Negative /uL Urine RBC 3 0 - 3 /hpf Urine Microscopic WBC < 1 0-3 /HPF Urine Squamous Epithelial Cells None seen <5 /hpf Urine Bacteria None seen None Seen /hpf Urine Mucus Few None Seen Urine Glucose Normal Normal mg/dL White Blood Count 6.4 4.4-10.8 10^3/uL Red Blood Count 5.30 4.5-5.90 10^6/uL Hemoglobin 16.5 13.5-17.5 g/dL Hematocrit 49.0 41.0-53.0 % Mean Corpuscular Volume 92.4 80.0-100.0 fL Mean Corpuscular Hemoglobin 31.1 28.0-32.0 pg Mean Corpuscular Hemoglobin Concent 33.7 32.0-36.0 g/dL Red Cell Distribution Width 14.6 H 11.8-14.3 % Platelet Count 173 140-450 10^3/uL Mean Platelet Volume 8.8 6.9-10.8 fL Neutrophils (%) (Auto) 75.0 37.0-80.0 % Lymphocytes (%) (Auto) 17.4 10.0-50.0 % Monocytes (%) (Auto) 5.9 0.0-12.0 % Eosinophils (%) (Auto) 0.8 0.0-7.0 % Basophils (%) (Auto) 0.9 0.0-2.0 % Neutrophils # (Auto) 4.8 1.6-8.6 10 ^3/uL Lymphocytes # (Auto) 1.1 0.4-5.4 10 ^3/uL Monocytes # (Auto) 0.4 0-1.3 10 ^3/uL Eosinophils # (Auto) 0.1 0-0.8 10 ^3/uL Basophils # (Auto) 0.1 0-0.2 10 ^3/uL Nucleated Red Blood Cells 0.1 % Sodium Level 138 136-145 mmol/L Potassium Level 4.0 3.5-5.1 mmol/L Chloride Level 109 H 98-107 mmol/L Carbon Dioxide Level 23 20-31 mmol/L Anion Gap 6 5-15 Blood Urea Nitrogen 13 9-23 mg/dL Creatinine 1.56 H 0.700-1.30 mg/dL Glomerular Filtration Rate Calc 63 >90 mL/min BUN/Creatinine Ratio 8.3 L 10.0-20.0 Serum Glucose 105 74-106 mg/dL Calcium Level 9.8 8.7-10.4 mg/dL Aspartate Amino Transferase (AST) 15 13-40 U/L Alanine Aminotransferase (ALT) 10 7-40 U/L Alkaline Phosphatase 50 46-116 U/L Assessment/Plan Assessment/Plan Rule out sickle cell variant --> Elevated T. Bilirubin --> Worsening RUQ pain in association with using Bactrim --> Electrophoresis Right flank pain --> CT abdomen is negative --.> Pain management ([place]) Enlarge and mobile right inguinal lymph --> Infectious workup DWIGHT on CKD stage 1 -> Normal saline maintenance Cannabinoid use --> UDS positive Resolving UTI -->Stop Bactrim --> Start Doxycycline Goal of care discussed for more than 30 minutes; full code Case and plan discussed with Dr. Wagoner Plan discussed with: Patient My Orders Orders - YANIRA AGUIRRE RESIDENT Procedure Category Date Status Time Admit ADMIT 05/30/24 Verified 01:20 Code Status CODE 05/30/24 Verified 01:20 Vital Signs [place] 05/30/24 Verified 01:20 Review Orders With [facility] 05/30/24 Verified Adm. 01:20 Notify Md Of Changes [facility] 05/30/24 Verified From Base 01:20 Advance Directive [facility] 05/30/24 Verified 01:20 Patient Condition ORDERS 05/30/24 Verified 01:20 Allergies [facility] 05/30/24 Verified 01:20 Notify Md Of Changes [facility] 05/30/24 Verified From Base 01:20 Date of Service: May 30, 2024 Billing Provider: LYNDA WAGONER MD Common Visit Codes: 73621-[id number] INP/OBS CARE (HIGH) YANIRA AGUIRRE RESIDENT May 30, 2024 01:36 LYNDA WAGONER MD May 30, 2024 11:05
[2024-05-30 02:53] LABS: Total Protein 7.7 g/dL (5.7-8.2)
[2024-05-30 02:54] LABS: Bilirubin, Total 0.8 mg/dL (0.2-1.0)
[2024-05-30 03:02] LABS: Amphetamine Screen, Urine Neg (NEGATIVE); Barbiturate Scree,Urine Neg (NEGATIVE); Benzodiazephine Screen, Urine Neg (NEGATIVE); Cannabinoid Screen, Urine Pos (NEGATIVE); Cocaine Screen, Urine Neg (NEGATIVE); Opiate Scree,Urine Neg (NEGATIVE); Phencyclidine Screen, Urine Neg (NEGATIVE)
[2024-05-30 03:06] LABS: Bilirubin, Direct 0.2 mg/dL (<0.3)
[2024-05-30] MEDS: MORPHINE SULFATE INJ 2 MG/ml SYRG IV PRN (04:01)
[2024-05-30] MEDS: DOXYCYCLINE 100MG/100ML 100 ML IV ONE (04:21)
[2024-05-30 04:24] VITALS: BP 127/70; PULSE 64; RESP 20; TEMP 98.1; O2SAT 98
[2024-05-30 05:00] VITALS: BP 120/75; PULSE 63; RESP 16; TEMP 98.1; O2SAT 100
[2024-05-30] MEDS ORDERED: SULF400T11 PO (05:06)
[2024-05-30 06:44] LABS: Magnesium 2.1 mg/dL (1.6-2.6)
[2024-05-30 06:45] LABS: CRP High Sensitivity 0.02 mg/dL (<1.0)
[2024-05-30 06:46] LABS: Phosphorus 3.2 mg/dL (2.4-5.1)
[2024-05-30 06:47] LABS: T3 Total 1.16 ng/mL (0.60-1.81)
[2024-05-30 06:48] LABS: Free T4 (Free Thyroxine) 1.27 ng/dL (0.89-1.76)
--- NOTE | 2024-05-30 07:06 | DVH ---
EXAM: XR Chest, 1 View CLINICAL INDICATION: chest pain TECHNIQUE: Frontal view of the chest. COMPARISON: None FINDINGS: LUNGS AND PLEURAL SPACES: Unremarkable. No consolidation. No pneumothorax. HEART: Unremarkable. No cardiomegaly. MEDIASTINUM: Unremarkable. Normal mediastinal contour. BONES/JOINTS: Unremarkable. No acute fracture. OTHER FINDINGS: . None. IMPRESSION: No acute cardiopulmonary process.
[2024-05-30 08:35] VITALS: BP 122/81; PULSE 65; RESP 16; TEMP 97.7; O2SAT 100
--- NOTE | 2024-05-30 08:40 | DVH ---
Exam: US RIGHT LOWER EXTREMITY ULTRASOU Date: 05/30/2024 07:36 AM Clinical History: Lymphadenopathies in right groin, r/o abscess Comparison: None Findings: Targeted sonographic evaluation of the soft tissues of the right lower quadrant was obtained utilizi ng grayscale and color Doppler imaging. There is no evidence for drainable collection. There is no evidence for solid or cystic mass in the site. No vascular abnormalities identified at this site. IMPRESSION: No definite sonographic abnormality is identified in the soft tissues of the right lower quadrant END IMPRESSION:
--- NOTE | 2024-05-30 08:48 | DVH ---
INDICATION: RUQ TECHNIQUE: Multiple real-time sonographic images were obtained of the right upper quadrant. COMPARISON: None FINDINGS: The liver demonstrates homogenous echotexture . There is a echogenic lesion in the right he patic lobe measuring 0 9 cm. The liver measures 15 cm. There is no intrahepatic or extrahepatic duct al dilatation. The common duct measures 2 mm. The gallbladder is without evidence of stone or sludge. The gallbladder wall measures 1 mm and is wi thin normal limits. The right kidney measures 11.1 cm. The right kidney is normal in contour, size, and shape. The echog enicity is normal. There is no hydronephrosis. The pancreas is not well visualized due to overlying bowel gas. IMPRESSION: No sonographic evidence of gallstones or acute cholecystitis. Echogenic lesion in the right hepatic lobe measuring 0.9 cm.
[2024-05-30] MEDS ORDERED: HYDROcodone-ACET 5/325MG TAB PO PRN (09:15)
[2024-05-30 10:23] LABS: Hepatitis A Ab IgM Negative; Hepatitis B Core IgM Negative (Negative); Hepatitis B Surface Antigen Negative (Negative); Hepatitis C Antibody Negative (Negative)
[2024-05-30] MEDS: ERGOCALCIFEROL 50,000 UNIT(1.25MG) CAP PO SCH (11:16)
[2024-05-30] MEDS: cefTRIAXone 1GM/50ML D5W 50 ML IV SCH (11:17)
[2024-05-30 13:00] VITALS: BP 128/85; PULSE 68; RESP 18; TEMP 98.2; O2SAT 98
[2024-05-30] MEDS: DOXYCYCLINE 100MG/100ML 100 ML IV SCH (14:33)
[2024-05-30 17:00] VITALS: BP 116/77; PULSE 64; RESP 18; TEMP 97.9; O2SAT 99
--- NOTE | 2024-05-30 18:46 | DVHPNRES ---
Progress Note Date Seen: May 30, 2024 Resident Creating Document: KEITH QUEEN RESIDENT Has the PT tested + for MRSA If YES, has PT been informed?: No Medical Necessity Reason Pt with a Central, PICC or Fol: No Subjective Review of Systems Patient is a 23 year male who presented to the ED with a chief complaint of abdominal pain for the past 4 months. Per patient, this pain has been on going for the past 40. It is mainly located in the RUQ but is migratory. Sometimes to the RLQ or to the LUQ. He has had couple of ED and urgent visit for this same pain but nothing had been concluded as the etiology. Currently, he presented to urgent care with similar problem. Urinalysis reveal UTI and patient was given Bactrim. He reported feeling better with the UTI symptoms; however, his RUQ pain became worse prompting a visit to the ED. He denies chest pain, sick contact, viral infection (like EBV), anabolic drug use and he sexually active with his girlfriend only. Overall patient is hemodynamically stable and all his labs and imaging studies are unremarkable. 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 Objective vital signs Vital Sign Date Time Temp Pulse Resp B/P (MAP) Pulse Ox O2 Delivery O2 Flow Rate FiO2 05/30/24 17:00 97.9 64 18 116/77 (90) 99 97.9 05/30/24 08:10 Room Air* 0 21 Total Intake and Output 05/29/24 05/29/24 05/30/24 15:00 23:00 07:00 Output Total 200 ml Balance -200 ml medications Current Medications Medications Dose Ordered Sig/Apryl Route Start Time Stop Time Status Last Admin Dose Admin Doxycycline Hyclate 100 ml @ 50 mls/hr Q12H IV 05/30/24 14:30 05/30/24 14:33 50 MLS/HR Morphine Sulfate 1 mg Q4HP PRN IV 05/30/24 03:00 05/30/24 04:01 1 MG Ergocalciferol 50,000 unit Q7D PO 05/30/24 08:15 05/30/24 11:16 50,000 UNIT Ceftriaxone Sodium 50 ml @ 100 mls/hr DAILY@09 IV 05/30/24 09:54 05/30/24 11:17 100 MLS/HR Acetaminophen/ Hydrocodone Bitart 1 tab Q4HPRN PRN PO 05/30/24 09:15 Examination General Appearance: Alert, Oriented X3, Cooperative, No acute distress HEENT: Atraumatic, PERRLA, EOMI, Mucous membrane moist/pink Respiratory: Clear to auscultation, Normal air movement Cardiovascular: Regular rate, Normal S1, Normal S2, No murmurs, no chest wall tenderness Abdominal: Tenderness in the RUQ> RLQ and LUQ; bowel sounds present, no scars noted Extremities: No clubbing, No cyanosis, No edema, Normal pulses, No tenderness/swelling; Positive right inguinal lymphnodes Skin: No rashes, No breakdown, No significant lesion Neuro: Normal gait, Normal speech, Strength at 5/5 X4 ext, Normal tone, Sensation intact, Cranial nerves 3-12 NL, Reflexes 2+ Psych/Mental Status: Mental status NL, Mood NL laboratory and microbiology Laboratory Tests 05/29/24 21:16 Test 05/29/24 21:16 Range/Units Serum Glucose 105 74-106 mg/dL Problem List/Assessment/Plan Problem List/Assessment/Plan Rule out sickle cell variant --> Elevated T. Bilirubin --> Worsening RUQ pain in association with using Bactrim --> Electrophoresis Right flank pain --> CT abdomen is negative --.> Pain management [place] Enlarge and mobile right inguinal lymph --> Infectious workup DWIGHT on CKD stage 1 -> Normal saline maintenance Cannabinoid use --> UDS positive Resolving UTI -->Stop Bactrim --> Start Doxycycline and ceftriaxone Vitamin D deficiency Vitamin D PO Goal of care discussed for more than 30 minutes; full code Case and plan discussed with Dr. Nesbitt Plan discussed with: Patient, Other (rn) My Orders My Orders Orders - KEITH QUEEN Procedure Category Date Status Time Ergocalciferol PHA 05/30/24 In Process (Vitamin D 50,000 08:15 Hydrocodone-Acet PHA 05/30/24 In Process 5/325mg Tab ([place] 09:15 Ceftriaxone 1gm/50ml PHA 05/30/24 In Process D5w (Rocephin) 09:54 KEITH QUEEN RESIDENT May 30, 2024 18:46
[2024-05-30 21:00] VITALS: BP 102/50; PULSE 71; RESP 18; TEMP 97.9; O2SAT 98
[2024-05-31 01:00] VITALS: BP 113/65; PULSE 62; RESP 18; TEMP 97.9; O2SAT 99
[2024-05-31 05:00] VITALS: BP 117/67; PULSE 64; RESP 18; TEMP 98.6; O2SAT 100
[2024-05-31 06:03] LABS: Basophils # (auto) 0 10 ^3/uL (0-0.2); Basophils % (auto) 0.6 % (0.0-2.0); Eosinophils # (auto) 0.1 10 ^3/uL (0-0.8); Eosinophils % (auto) 1.4 % (0.0-7.0); Hematocrit 50.7 % (41.0-53.0); Hemoglobin 17.4 g/dL (13.5-17.5); Lymphocytes # (auto) 1.4 10 ^3/uL (0.4-5.4); Lymphocytes % (auto) 21.9 % (10.0-50.0); Mean Corpuscular Hemoglobin 32.2 pg (28.0-32.0); Mean Corpuscular Hgb Conc. 34.3 g/dL (32.0-36.0); Mean Corpuscular Volume 93.9 fL (80.0-100.0); Monocytes # (auto) 0.6 10 ^3/uL (0-1.3); Monocytes % (auto) 8.7 % (0.0-12.0); Neutrophils # (auto) 4.4 10 ^3/uL (1.6-8.6); Neutrophils % (auto) 67.4 % (37.0-80.0); Nucleated Red Blood Cells % 0.1 %; Platelet Count (auto) 163 10^3/uL (140-450); Red Cell Distribution Width 14.5 % (11.8-14.3); White Blood Cell 6.6 10^3/uL (4.4-10.8)
[2024-05-31 06:05] LABS: Creatinine, Urine 145.42 mg/dL (30.0-125.0); Urine Protein/Creatinine Ratio 0.07
[2024-05-31 06:53] LABS: Albumin 4.7 g/dL (3.2-4.8); Alkaline Phosphatase 47 U/L (46-116); Anion Gap 10 (5-15); Aspartate Aminotransferase 15 U/L (13-40); BUN/Creatinine Ratio 7.9 (10.0-20.0); Blood Urea Nitrogen 11 mg/dL (9-23); Calcium 10.2 mg/dL (8.7-10.4); Carbon Dioxide 22 mmol/L (20-31); Glucose 98 mg/dL (74-106); Potassium 4.4 mmol/L (3.5-5.1); Sodium 139 mmol/L (136-145); Total Protein 7.4 g/dL (5.7-8.2)
[2024-05-31 06:54] LABS: Alanine Aminotransferase < 9 U/L (7-40); Bilirubin, Total 0.9 mg/dL (0.2-1.0); Chloride 107 mmol/L (98-107)
[2024-05-31 08:07] LABS: Haptoglobin 92 mg/dL (17-317)
[2024-05-31] MEDS: SODIUM CHLORIDE 0.9% 2,000 ML IV ONE (09:00)
[2024-05-31] MEDS ORDERED: DOXY150C6 PO (09:04)
[2024-05-31] MEDS ORDERED: CIPR-173 PO (09:04)
[2024-05-31] MEDS ORDERED: ACET1CAP14 PO (09:06)
--- NOTE | 2024-05-31 15:18 | DVHDSRES ---
Discharge Summary Date of Admission Resident Creating Document: KEITH QUEEN RESIDENT May 30, 2024 at 01:20 Date of Discharge: May 31, 2024 Admitting Diagnosis acute intractable pain Labs/Diagnostic Data: Laboratory Results Test 05/31/24 11:06 05/31/24 05:43 05/31/24 05:40 05/30/24 05:02 Creatinine 1.32 mg/dL (0.700-1.30) Glomerular Filtration Rate Calc 77 mL/min (>90) White Blood Count 6.6 10^3/uL (4.4-10.8) Red Blood Count 5.40 10^6/uL (4.5-5.90) Hemoglobin 17.4 g/dL (13.5-17.5) Hematocrit 50.7 % (41.0-53.0) Mean Corpuscular Volume 93.9 fL (80.0-100.0) Mean Corpuscular Hemoglobin 32.2 pg (28.0-32.0) Mean Corpuscular Hemoglobin Concent 34.3 g/dL (32.0-36.0) Red Cell Distribution Width 14.5 % (11.8-14.3) Platelet Count 163 10^3/uL (140-450) Mean Platelet Volume 8.7 fL (6.9-10.8) Neutrophils (%) (Auto) 67.4 % (37.0-80.0) Lymphocytes (%) (Auto) 21.9 % (10.0-50.0) Monocytes (%) (Auto) 8.7 % (0.0-12.0) Eosinophils (%) (Auto) 1.4 % (0.0-7.0) Basophils (%) (Auto) 0.6 % (0.0-2.0) Neutrophils # (Auto) 4.4 10 ^3/uL (1.6-8.6) Lymphocytes # (Auto) 1.4 10 ^3/uL (0.4-5.4) Monocytes # (Auto) 0.6 10 ^3/uL (0-1.3) Eosinophils # (Auto) 0.1 10 ^3/uL (0-0.8) Basophils # (Auto) 0 10 ^3/uL (0-0.2) Nucleated Red Blood Cells 0.1 % Sodium Level 139 mmol/L (136-145) Potassium Level 4.4 mmol/L (3.5-5.1) Chloride Level 107 mmol/L (98-107) Carbon Dioxide Level 22 mmol/L (20-31) Anion Gap 10 (5-15) Blood Urea Nitrogen 11 mg/dL (9-23) BUN/Creatinine Ratio 7.9 (10.0-20.0) Serum Glucose 98 mg/dL (74-106) Calcium Level 10.2 mg/dL (8.7-10.4) Total Bilirubin 0.9 mg/dL (0.2-1.0) Aspartate Amino Transferase (AST) 15 U/L (13-40) Alanine Aminotransferase (ALT) < 9 U/L (7-40) Alkaline Phosphatase 47 U/L (46-116) Total Protein 7.4 g/dL (5.7-8.2) Albumin 4.7 g/dL (3.2-4.8) Urine Creatinine 145.42 mg/dL (30.0-125.0) Urine Microalbumin < 3.0 mg/L (<30.0) Urine Protein/Creatinine Ratio 0.07 Urine Sodium 223 mmol/L (40-220) Urine Total Protein 10.0 mg/dL (1-14) Phosphorus Level 3.2 mg/dL (2.4-5.1) Magnesium Level 2.1 mg/dL (1.6-2.6) C-Reactive Protein High Sensitivity 0.02 mg/dL (<1.0) Triglycerides Level 43 mg/dL (< 150) Cholesterol Level 159 mg/dL (< 200) LDL Cholesterol 92 mg/dL (< 100) HDL Cholesterol 60 mg/dL (40-59) Vitamin B12 Level 223 pg/mL (211-911) Vitamin D 25-Hydroxy 5.9 ng/mL (30.0-100) Thyroid Stimulating Hormone (TSH) 0.96 uIU/mL (0.55-4.78) Free Thyroxine (T4) Calculated 1.27 ng/dL (0.89-1.76) Total Triiodothyronine (TT3) 1.16 ng/mL (0.60-1.81) Hepatitis A IgM Antibody Negative Hepatitis B Surface Antigen Negative (Negative) Hepatitis B Core IgM Antibody Negative (Negative) Hepatitis C Antibody Negative (Negative) Test 05/30/24 02:09 3/19/25 22:45 Reticulocyte Count (auto) 0.40 % (0.5-1.5) Haptoglobin 92 mg/dL (17-317) Direct Bilirubin 0.2 mg/dL (<0.3) Lactate Dehydrogenase 156 U/L (120-246) Creatine Kinase 152 U/L (46-171) Troponin I High Sensitivity 19 ng/L (</=54) HIV (1&2) Antibody Negative (Negative) Urine Color Light-yellow (Yellow) Urine Clarity Clear (Clear) Urine pH 6.0 (5.0-9.0) Urine Specific [place] 1.026 (1.001-1.035) Urine Protein Negative (Negative) Urine Ketones Negative (Negative) Urine Blood Negative /uL (Negative) Urine Nitrite Negative (Negative) Urine Bilirubin Negative (Negative) Urine Urobilinogen 2 mg/dL (Negative) Urine Leukocyte Esterase Negative /uL (Negative) Urine RBC 3 /hpf (0 - 3) Urine Microscopic WBC < 1 /HPF (0-3) Urine Squamous Epithelial Cells None seen /hpf (<5) Urine Bacteria None seen /hpf (None Seen) Urine Mucus Few (None Seen) Urine Glucose Normal mg/dL (Normal) Urine Opiates Screen Neg (NEGATIVE) Urine Fentanyl Screen Neg (NEGATIVE) Urine Barbiturates Screen Neg (NEGATIVE) Urine Phencyclidine Screen Neg (NEGATIVE) Urine Amphetamines Screen Neg (NEGATIVE) Urine Benzodiazepines Screen Neg (NEGATIVE) Urine Cocaine Screen Neg (NEGATIVE) Urine Cannabinoids Screen Pos (NEGATIVE) Other Laboratory Tests 05/31/24 11:06 05/31/24 05:43 Brief Hx & Hospital Course: A 23-year-old male with a history of UTI presented with four months of migratory right upper quadrant (RUQ) pain. Prior visits to urgent care and the ED were inconclusive. Workup revealed UTI positive for Citrobacter koseri, and symptoms worsened with Bactrim. RUQ pain was non-radiating, with no associated fever, chills, or weight loss. Abdominal CT scan was normal, and groin ultrasound showed no abnormalities. Workup also noted elevated total bilirubin, prompting evaluation for sickle cell variant (pending Hb electrophoresis). During admission, the patient was treated with IV fluids, pain management ([place]), and antibiotics. Given clinical improvement, he is stable for discharge on oral ciprofloxacin and doxycycline with follow-up for pending results. Discharge Medications: Ciprofloxacin Doxycycline Acetaminophen PRN for pain Pending Results & Follow-Up: Neisseria gonorrhoeae and Chlamydia testing Hemoglobin electrophoresis Urine culture Follow-up in [facility] for result review Discharge Instructions: Continue prescribed medications as directed Monitor for worsening symptoms, such as fever, increased pain, or urinary symptoms Follow up as scheduled for pending test results and further evaluation Case discussed with Dr Nesbitt Operations or Procedures Exam: CT CT AB PEL WO CON-NO ORAL OR IV History: RIGHT UPPER QUADRANT ABDOMINAL PAIN/RIGHT FLANK PAIN Comparison Study: CT CT AB PEL WO CON-NO ORAL OR IV on DOS: 04/22/24 Technique: Multidetector spiral CT of the abdomen was performed from lung bases to pubic symphysis. Imaging was performed without IV contrast. Axial, coronal and sagittal multiplanar reformats were obtained from the axial data set by the technologist. Radiation Dose : 1. Abdomen/Pelvis: CTDIvol 6.47 mGy, DLP 368.96 mGy*cm. Findings: Evaluation of solid organs is limited due to lack of intravenous contrast use. Lung Bases: No acute or significant lung base finding. Normal heart size. No pleural or pericardial effusion. Liver: The liver is normal in size. No focal lesions. Gallbladder and Biliary Tree: Unremarkable Spleen: Unremarkable Pancreas: The pancreas is grossly normal in appearance. Adrenal Glands: Unremarkable Kidneys: Kidneys are grossly normal without calculi or hydronephrosis. Bladder: Grossly unremarkable for degree of distention. Bowel: The stomach is grossly normal in appearance. Small bowel and colon are normal in caliber and distribution. Normal appendix is visualized in the right lower quadrant without findings of appendicitis. Ascites: Absent Lymphadenopathy: No mesenteric, retroperitoneal or periportal lymphadenopathy. Abdominal Wall and Mesentery: Unremarkable. Vasculature: The visualized abdominal aorta is normal in size and caliber. Evaluation of abdominal and pelvic vessels is limited due to lack of intravenous contrast. Pelvic Organs: Unremarkable Musculoskeletal: No aggressive focal bony lesions, acute fractures or dislocation. IMPRESSION: 1. No acute abdominal or pelvic findings. EXAM: CT NECK WITHOUT CONTRAST INDICATION: NECK SWELLING/PAIN Exam Date: 05/29/2024 10:39 PM COMPARISON: None TECHNIQUE: CT of the neck with intravenous contrast. RADIATION DOSE: CTDIvol: 23.48 mGy, DLP: 798.58 mGy*cm CONTRAST: Type of contrast: Omnipaque Contrast injected: 100 ml FINDINGS: There is no evidence of cervical mass lesion, pathologically enlarged lymph nodes or fluid collection. The fat planes of the neck appear intact. The airway and larynx are unremarkable. The parotid, submandibular and thyroid glands are unremarkable. The vascular structures of the neck appear patent. The visualized lung apices are clear. The limited visualized portions of the brain are unremarkable. The osseous structures are unremarkable. IMPRESSION: 1. No evidence of cervical mass lesion, pathologically enlarged lymph nodes or fluid collection. Condition at Discharge: Stable Final Diagnosis/Problems List Intractable abdominal pain Rule out sickle cell variant Right flank pain Enlarge and mobile right inguinal lymph DWIGHT on CKD stage 1 resolving Cannabinoid use Resolving UTI Discharge Disposition: Home Discharge Instruct/Medications Diet: Regular Activity: No Restrictions, As Tolerated Follow Up/Referral: [facility] Medications: SEE PRESCRIPTION Discharge Statement: "Patient was advised to return to the ER or call 911 if any headaches, dizziness, shortness of breath, chest pain, abdominal pain, bleeding, fevers, or worsening of medical condition. Patient was counseled about treatment plan, medications, possible side effects, patientverbalized understanding. All questions were answered to the best of my ability. This discharge took greater then 30 minutes in planning, reviewing documentation, counseling the patient, and discussing with other team members." ASSESSMENT ASSESSMENT Assessment UTI? ABDOMINAL PAIN KEITH QUEEN RESIDENT May 31, 2024 15:18
[2024-06-03 07:06] LABS: Hgb A 97.4 % (96.4-98.8); Hgb A2 2.6 % (1.8-3.2)
== END 2024-05-31 12:20 | disposition home or self-care (01) | DRG 463 ==
LOC: ER 19:46 → OVERFLOW 05-30 01:20 → WEST WING 05-30 02:52
PROVIDERS: ADMIT Internal Medicine; ATTEND Emergency Medicine
DX: N39.0 Urinary tract infection, site not specified (principal); N17.0 Acute kidney failure with tubular necrosis; E55.9 Vitamin D deficiency, unspecified; F12.90 Cannabis use, unspecified, uncomplicated; F17.210 Nicotine dependence, cigarettes, uncomplicated; R59.9 Enlarged lymph nodes, unspecified; N18.1 Chronic kidney disease, stage 1; Z79.899 Other long term (current) drug therapy; Z83.3 Family history of diabetes mellitus
CPT/HCPCS: 36415; 70490; 71045; 74176; 76705; 76881; 80048; 80053; 80061; 80074; 80076; 80307; 81001; 82043; 82306; 82550; 82565; 82570; 82607; 83010; 83021; 83615; 83735; 84075; 84100; 84156; 84300; 84439; 84443; 84450; 84460; 84480; 84484; 85025; 85045; 85660; 86141; 86703; 96361; 96374; G0378; J1885

== ENCOUNTER 2024-07-05 07:59 | Emergency (ER) | payer MEDICAID ==
[~2024-07-05] VITALS: Ht 188 cm; Wt 88.1 kg
[~2024-07-05 07:59] MED LIST changes: +ACET1CAP14 PO; +CIPR-173 PO; +DOXY150C6 PO; -METH-1181 PO
[2024-07-05 08:30] VITALS: BP 132/78; PULSE 77; RESP 16; TEMP 98.6; O2SAT 99
--- NOTE | 2024-07-05 08:52 | ED.PDOC ---
History of Present Illness HPI Comments A 23 YEAR OLD MALE PRESENTS TO THE ED WITH COMPLAINT OF PENILE DISCHARGE. PATIENT STATES HE HAS BEEN EXPERIENCING A CLEAR PENILE DISCHARGE OFF AND ON FOR THE PAST 5 MONTHS. PATIENT HAS BEEN TO THIS ED AND TO HIS PCP MULTIPLE TIMES FOR THIS ISSUE OVER THE PAST 5 MONTHS, AND HAS BEEN TESTED FOR MULTIPLE STDS ALL OF WHICH WERE NEGATIVE, BUT NOTES THERE HAS BEEN NO IMPROVEMENT. PATIENT DENIES DYSURIA, HEMATURIA, FEVER, CHILLS, SHORTNESS OF BREATH, CHEST PAIN, ABDOMINAL PAIN, NAUSEA, VOMITING, HEADACHE, OR OTHER COMPLAINTS. NO OTHER SYMPTOMS OR MODIFYING FACTORS AT THIS TIME. PATIENT IS ALERT, ORIENTED X 4, AND HAS STEADY GAIT. Chief Complaint: Penile Discharge Time Seen by MD: 08:18 Primary Care Provider: LAURA Reviewed Notes: Nurses Notes, Medications, Allergies Allergies: Coded Allergies: NO KNOWN ALLERGIES (Unverified , 04/22/24) Home Meds Active Scripts Ketoconazole (Ketoconazole) 2 % Cre, 1 APPLIC TOP DAILY, #15 GRAMS Prov:TIARA SCHMIDT 07/05/24 Acetaminophen (Tylenol) 325 Mg Cap, 325 MG PO TID for 5 Days, #30 CAP Prov:KEITH QUEEN 05/31/24 Doxycycline (Monohydrate) (DOXYCYCLINE) 150 Mg Cap, 150 MG PO BID for 5 Days, #10 CAP Prov:KEITH QUEEN 05/31/24 Ciprofloxacin Hcl (Cipro) 500 Mg Tab, 500 MG PO BID for 5 Days, #10 TAB Prov:KEITH QUEEN 05/31/24 Information Source: Patient Mode of Arrival: Ambulatory Severity: Mild Timing: Days Duration: Since onset, Days Prehospital treatment: None Medication Refill: For: Other (CLEAR PENILE DISCHARGE) Past Medical History PAST MEDICAL HISTORY: Denies Surgical History: Denies all surgeries Family History Family History: Reviewed,noncontributory to illness, Family hx of DM, Family hx of Cancer Social History Smoker: Cigarettes, Less Than 1 Pack/Day Alcohol: Occasionally Drugs: Marijuana Lives In: Home Constitutional: denies: chills, diaphoresis, fatigue, fever, malaise, sweats, weakness, others EENTM: denies: blurred vision, double vision, ear bleeding, ear discharge, ear drainage, ear pain, ear ringing, eye pain, eye redness, hearing loss, mouth pain, mouth swelling, nasal discharge, nose bleeding, nose congestion, nose pain, photophobia, tearing, throat pain, throat swelling, voice changes, others Respiratory: denies: cough, hemoptysis, orthopnea, SOB at rest, shortness of breath, SOB with excertion, stridor, wheezing, others Cardiovascular: denies: chest pain, dizzy spells, diaphoresis, Dyspnea on exertion, edema, irregular heart beat, left arm pain, lightheadedness, p alpitations, PND, syncope, others Gastrointestinal: denies: abdomen distended, abdominal pain, blood streaked bowels, constipated, diarrhea, dysphagia, difficulty swallowing, hematemesis, melena, nausea, poor appetite, poor fluid intake, rectal bleeding, rectal pain, vomiting, others Genitourinary: reports: penile discharge; denies: burning, dysuria, flank pain, frequency, hematuria, incontinence, penile sore, pain, testicle pain, testicle swelling, urgency, others Neurological: denies: dizziness, fainting, headache, left sided numbness, left sided weakness, numbness, paresthesia, pre-existing deficit, right sided numbness, right sided weakness, seizure, speech problems, tingling, tremors, weakness, others Musculoskeletal: denies: back pain, gout, joint pain, joint swelling, muscle pain, muscle stiffness, neck pain, others Integumetry: denies: bruises, change in color, change in hair/nails, dryness, laceration, lesions, lumps, rash, wounds, others Allergic/Immunocompromised: denies: Difficulty Healing, Frequent Infections, Hives, Itching, others Hematologic/Lymphatic: denies: anemia, blood clots, easy bleeding, easy bruising, swollen glands, others Endocrine: denies: excessive hunger, excessive sweating, excessive thirst, excessive urination, flushing, intolerance to cold, intolerance to heat, unexplained weight gain, unexplained weight loss, others Psychiatric: denies: anxiety, bipolar disorder, depression, hopeless, panic disorder, schizophrenia, sleepless, suicidal, others All Other Systems: Reviewed and Negative Physical Exam General Appearance: No Apparent Distress, Normal HEENT: Normal ENT Inspection, PERRL/EOMI, Pharynx Normal, TMs Normal Neck: Full Range of Motion, Non-Tender, Normal, Normal Inspection Respiratory: Chest Non-Tender, Lungs Clear, No Accessory Muscle Use, No Respiratory Distress, Normal Breath Sounds Cardiovascular: No Edema, No JVD, No Murmur, No Gallop, Normal Peripheral Pulses, Regular Rate/Rhythm Breast Exam: Deferred Gastrointestinal: No Organomegaly, Non Tender, No Pulsatile Mass, Normal Bowel Sounds, Soft Genitalia: Penis (UNCIRCUMCISED PENIS, NO SKIN RASH AND SWELLING, NO PENILE DISCHARGE. ) Pelvic: Deferred Rectal: Deferred Extremities: No calf tenderness, Normal capillary refill, Normal inspection, Normal range of motion, Non-tender, No pedal edema Musculoskeletal : Apperance: Normal Neurologic: Alert, instant printer operator II-XII nml as Tested, No Motor Deficits, Normal Affect, Normal Mood, No Sensory Deficits Cerebellar Function: Normal Reflexes: Normal Skin: Dry, Normal Color, Warm Peripheral Pulses: 2+ carotid (R), 2+ carotid (L) Lymphatic: No Adenopathy Was a procedure done? Was a procedure done?: No Differential Dx Considerations may include: BALANITIS, STD EXPOSURE, WELL CHECK X-Ray, Labs, Meds, VS Vital Signs Date Time Temp Pulse Resp B/P (MAP) Pulse Ox O2 Delivery O2 Flow Rate FiO2 07/05/24 08:30 77 16 99 Room Air 07/05/24 08:30 98.6 77 16 132/78 (96) 100 98.6 07/05/24 08:12 98.6 72 16 136/88 (104) 99 98.6 X-Ray, Labs, Meds, VS Comment EXTERNAL MEDICAL RECORDS REVIEWED: [NONE] INDEPENDENT HISTORIANS: [NONE] SOCIAL DETERMINANTS OF HEALTH: [NONE] LABS ORDERED: NONE REVIEWED AND INTERPRETED RESULTS: NONE IMAGING ORDERED: NONE TREATMENTS ORDERED: NONE PROCEDURES PERFORMED: NONE CRITICAL CARE TIME: NONE I HAVE DISCUSSED THE PATIENT WITH THE ATTENDING PHYSICIAN DR. DUENAS AND SHE AGREES WITH THE PATIENT'S PLAN OF CARE AND DISPOSITION. BASED ON HISTORY OF PRESENT ILLNESS, AND PHYSICAL EXAM, PATIENT WILL BE DISCHARGED HOME. DISCUSSED PLAN FOR DISCHARGE HOME WITH RX [[employer]]. MEDICATION WARNINGS GIVEN. SHARED DECISION MAKING: PATIENT INSTRUCTED TO FOLLOW UP WITH PRIMARY CARE PROVIDER IN 1-2 DAYS FOR RE-EVALUATION OF SYMPTOMS. PATIENT VERBALIZES UNDERSTANDING TO RETURN TO ED FOR NEW OR WORSENING SYMPTOMS OR IF FOLLOW UP WITH PCP CANNOT BE OBTAINED. PATIENT FEELS COMFORTABLE GOING HOME AT THIS TIME. ALL QUESTIONS ADDRESSED AT TIME OF DISCHARGE. Time of 1ST Reevaluation: 09:00 Reevaluation 1ST: Improved Patient Education/Counseling: Diagnosis, Treatment, Need For Follow Up Family Education/Counseling: Diagnosis, Treatment, Need For Follow Up Medical Screening: No EMC Exist At This Time Departure 1 Departure Time of Disposition: 09:10 Impression: Primary Impression: Kinsey Disposition: 01 HOME / SELF CARE / HOMELESS Condition: Stable Additional Instructions: FOLLOW-UP WITH PCP IN 1 TO 2 DAYS FOR REFERRAL TO UROLOGIST. TAKE MEDICATIONS PRESCRIBED. RETURN TO ED FOR ANY NEW OR WORSENING SYMPTOMS. e-Prescriptions Ketoconazole (Ketoconazole) 2 % Cre 1 APPLIC TOP DAILY, #15 GRAMS Prov: TIARA SCHMIDT 07/05/24 Discharged With: Self Critical Care Note Critical Care Time?: No Stability Stability form required: No I personally scribed for TIARA SCHMIDT ([email or web address]) on 07/05/24 at 08:52. E lectronically submitted by Dedrick Moncada ([email or web address]). TIARA SCHMIDT Jul 05, 2024 08:52
[2024-07-05] MEDS ORDERED: KETO2CRE4 TOP (08:54)
== END 2024-07-05 09:00 | disposition home or self-care (01) ==
LOC: ER 07:59
DX: N48.1 Balanitis (principal); F17.210 Nicotine dependence, cigarettes, uncomplicated; F12.90 Cannabis use, unspecified, uncomplicated; Z79.899 Other long term (current) drug therapy

== ENCOUNTER → 2024-08-06 | Outpatient (CLI) | payer MEDICAID ==
[~2024-08-06] MED LIST changes: +KETO2CRE4 TOP
[2024-08-08 02:06] LABS: Thyrotropin Receptor Antibody <1.10 IU/L (0.00-1.75)
== END | disposition home or self-care (01) ==
LOC: LAB 12:29
PROVIDERS: ATTEND Internal Medicine Endocrinology, Diabetes & Metabolism
DX: E05.90 Thyrotoxicosis, unspecified without thyrotoxic crisis or storm (principal)
CPT/HCPCS: 36415; 84439; 84443; 84445

== ENCOUNTER 2024-10-07 08:07 | Emergency (ER) | payer MEDICAID ==
[~2024-10-07] VITALS: Ht 188 cm; Wt 90.5 kg
--- NOTE | 2024-10-07 08:32 | ED.PDOC ---
General HPI Comments 24 y/o M, presents to the ED for CC of urinary. Patient states, he has been experiencing penile pain with associated symptoms of itchiness and dysuria onset, January 2024. Patient reports, pain after sexual intercourse in his suprapubic abdominal area. Patient endorses, being seen for SS approximately 30x since, commencement. Patient denies fever, chills, hematuria, back pain, flank pain, or penile discharge. No other associated symptoms, modifiers, recent injuries or sick contacts present at this time. Chief Complaint: Urinary Time Seen by MD: 08:25 Primary Care Provider: LAURA Reviewed notes: Nurses Notes, Medications, Allergies Allergies: Coded Allergies: NO KNOWN ALLERGIES (Unverified , 04/22/24) Home Meds Active Scripts Ketoconazole (Ketoconazole) 2 % Cre, 1 APPLIC TOP DAILY, #15 GRAMS Prov:TIARA SCHMIDT 07/05/24 Acetaminophen (Tylenol) 325 Mg Cap, 325 MG PO TID for 5 Days, #30 CAP Prov:KEITH QUEEN 05/31/24 Doxycycline (Monohydrate) (DOXYCYCLINE) 150 Mg Cap, 150 MG PO BID for 5 Days, #10 CAP Prov:KEITH QUEEN 05/31/24 Ciprofloxacin Hcl (Cipro) 500 Mg Tab, 500 MG PO BID for 5 Days, #10 TAB Prov:KEITH QUEEN 05/31/24 Information Source: Patient Mode of Arrival: Ambulatory Severity: Moderate Inability to void: None Timing: Months Duration: Since onset Prehospital treatment: None Onset: Spontaneous Symptoms: Dysuria History of: None Location: None Penile discharge: None Modifying factors: None associated signs and symptoms: None Past Medical History PAST MEDICAL HISTORY: Denies Surgical History: Denies all surgeries Family History Family History: Reviewed,noncontributory to illness, Family hx of DM, Family hx of Cancer Social History Smoker: Cigarettes, Less Than 1 Pack/Day Alcohol: Occasionally Drugs: Marijuana Lives In: Home Constitutional: denies: chills, diaphoresis, fatigue, fever, malaise, sweats, weakness, others EENTM: denies: blurred vision, double vision, ear bleeding, ear discharge, ear drainage, ear pain, ear ringing, eye pain, eye redness, hearing loss, mouth pain, mouth swelling, nasal discharge, nose bleeding, nose congestion, nose pain, photophobia, tearing, throat pain, throat swelling, voice changes, others Respiratory: denies: cough, hemoptysis, orthopnea, SOB at rest, shortness of breath, SOB with excertion, stridor, wheezing, others Cardiovascular: denies: chest pain, dizzy spells, diaphoresis, Dyspnea on exertion, edema, irregular heart beat, left arm pain, lightheadedness, palpitations, PND, syncope, others Gastrointestinal: denies: abdomen distended, abdominal pain, blood streaked bowels, constipated, diarrhea, dysphagia, difficulty swallowing, hematemesis, melena, nausea, poor appetite, poor fluid intake, rectal bleeding, rectal pain, vomiting, others Genitourinary: reports: others (penile pain/ itchiness); denies: burning, dysuria, flank pain, frequency, hematuria, incontinence, penile discharge, penile sore, pain, testicle pain, testicle swelling, urgency Neurological: denies: dizziness, fainting, headache, left sided numbness, left sided weakness, numbness, paresthesia, pre-existing deficit, right sided numbness, right sided weakness, seizure, speech problems, tingling, tremors, weakness, others Musculoskeletal: denies: back pain, gout, joint pain, joint swelling, muscle pain, muscle stiffness, neck pain, others Integumetry: denies: bruises, change in color, change in hair/nails, dryness, laceration, lesions, lumps, rash, wounds, others Allergic/Immunocompromised: denies: Difficulty Healing, Frequent Infections, Hives, Itching, others Hematologic/Lymphatic: denies: anemia, blood clots, easy bleeding, easy bruising, swollen glands, others Endocrine: denies: excessive hunger, excessive sweating, excessive thirst, excessive urination, flushing, intolerance to cold, intolerance to heat, unexplained weight gain, unexplained weight loss, others Psychiatric: denies: anxiety, bipolar disorder, depression, hopeless, panic disorder, schizophrenia, sleepless, suicidal, others All Other Systems: Reviewed and Negative Physical Exam General Appearance: No Apparent Distress HEENT: Pharynx Normal Neck: Normal Inspection Respiratory: No Respiratory Distress Cardiovascular: No Edema Breast Exam: Deferred Gastrointestinal: Non Tender Genitalia: Deferred Pelvic: Deferred Rectal: Deferred Extremities: No pedal edema Neurologic: No Motor Deficits Cerebellar Function: NOT DONE Reflexes: NOT DONE Skin: Normal Color Lymphatic: NOT DONE Was a procedure done? Was a procedure done?: No Differential Diagnosis Kidney stone (Female): N/A Kidney stone (Male): N/A Penile/Scrotal: Prostatitis, STD, UTI Urinary Problem (Male): N/A Urinary Problem (Female): N/A X-Ray, Labs, Meds, VS Vital Signs Date Time Temp Pulse Resp B/P (MAP) Pulse Ox O2 Delivery O2 Flow Rate FiO2 10/07/24 08:55 18 98 Room Air* 0 21 10/07/24 08:40 98.7 67 16 133/93 (106) 99 98.7 10/07/24 08:40 67 16 99 Room Air 10/07/24 08:12 97.6 68 18 151/92 (111) 97 97.6 Lab Test 10/07/24 08:21 Range/Units Urine Color Yellow Yellow Urine Clarity Clear Clear Urine pH 6.0 5.0-9.0 Urine Specific [place] 1.028 1.001-1.035 Urine Protein Negative Negative Urine Ketones Negative Negative Urine Blood Trace H Negative /uL Urine Nitrite Negative Negative Urine Bilirubin Negative Negative Urine Urobilinogen Normal Negative mg/dL Urine Leukocyte Esterase Negative Negative /uL Urine RBC <1 0 - 3 /hpf Urine Microscopic WBC < 1 0-3 /HPF Urine Squamous Epithelial Cells None seen <5 /hpf Urine Bacteria None seen None Seen /hpf Urine Mucus Few None Seen Urine Glucose Normal Normal mg/dL Chlamydia trachomatis (NATHALIA) Pending Neisseria gonorrhoeae (NATHALIA) Pending Time of 1ST Reevaluation: 08:55 Reevaluation 1ST: Unchanged Patient Education/Counseling: Diagnosis, Treatment Family Education/Counseling: No Family Present SEPSIS Sepsis Screen Date sepsis recognized/suspect: Oct 07, 2024 Time Sepsis recognized/suspect: 08 Recent Procedure: No On Antibiotic Therapy: No Respiratory Rate >20: No Heart Rate >90: No Temp<36 C (96.8 F) or >38.3 C: No SBP <90 or MAP <65 mmHG: No New Acute Mental Status Change: No Is the patient on CPAP, BIPAP,: No Physician Orders Chlamydia/Gc Amplification (10/07/24 08:21) Vital Signs Date Time Temp Pulse Resp B/P (MAP) Pulse Ox O2 Delivery O2 Flow Rate FiO2 10/07/24 08:55 18 98 Room Air* 0 21 10/07/24 08:40 98.7 67 16 133/93 (106) 99 98.7 10/07/24 08:40 67 16 99 Room Air 10/07/24 08:12 97.6 68 18 151/92 (111) 97 97.6 Departure 1 Departure Time of Disposition: 10:36 (Patient's workup is benign. We will discharge patient home with outpatient follow up) Impression: Primary Impression: Dysuria Disposition: HOME / SELF CARE / HOMELESS Condition: Stable Referrals: PENG DEL REAL MD Additional Instructions: Your workup today was benign. You were referred to urology. Please call for an appointment. Discharged With: Self Critical Care Note Critical Care Time?: No Stability Stability form required: No Heart Score Heart Score: Heart Score Response (Comments) Value History N/A 0 EKG N/A 0 Age N/A 0 Risk Factors N/A 0 Troponin N/A 0 Total 0 I personally scribed for LAZ ZAMORA MD ([email or web address]) on 10/07/24 at 08:32. Electronically submitted by Nanda Torres ([email or web address]). LAZ ZAMORA MD Oct 07, 2024 08:32
[2024-10-07 08:55] VITALS: RESP 18; O2SAT 98
[2024-10-07 09:06] LABS: Urine Protein, UAD Negative (Negative)
[2024-10-07 11:05] VITALS: BP 140/87; PULSE 61; RESP 17; TEMP 98.1; O2SAT 98
[2024-10-09 01:06] LABS: Chlamydia Trachomatis, NAA Negative (Negative); Neisseria gonorrhoeae, NAA Negative (Negative)
== END 2024-10-07 11:08 | disposition home or self-care (01) ==
LOC: ER 08:09
DX: R30.0 Dysuria (principal); F17.210 Nicotine dependence, cigarettes, uncomplicated
CPT/HCPCS: 81001

== ENCOUNTER 2024-10-27 13:15 | Emergency (ER) | payer MEDICAID ==
[~2024-10-27] VITALS: Ht 188 cm; Wt 93.3 kg
--- NOTE | 2024-10-27 14:08 | DVH ---
LEFT Upper Extremity Venous Duplex Clinical History: dvt Comparison: None Technique: Duplex Doppler evaluation of the venous system of the LEFT lower neck and upper extremity including color Doppler and spectral/pulsed waveform analysis was performed. Findings: The internal jugular vein demonstrates appropriate compressibility and waveform variability. The subclavian vein is patent on color Doppler evaluation without intraluminal thrombus and demonstra dania waveform variability. The visualized portion of the brachiocephalic vein is patent on color Doppler evaluation without intr aluminal thrombus and demonstrates waveform variability. The axillary vein demonstrates appropriate compressibility and waveform variability. The brachial veins demonstrate appropriate compressibility and patency on Doppler evaluation. The basilic vein demonstrates appropriate compressibility and patency on Doppler evaluation. The cephalic vein demonstrates appropriate compressibility and patency on Doppler evaluation. Impression: No venous thrombus identified in the LEFT upper extremity vessels evaluated above.
--- NOTE | 2024-10-27 14:50 | ED.PDOC ---
Musculoskeletal HPI Comments 24 y.o male presents to the ED for a chief complaint of left arm pain that started 1 week ago but for the past 2 days developed numbness sensation to his left elbow. Patient reports similar symptoms in the past in which he was evaluated for and diagnosed with a DVT. Patient mentions going hours drawing, in which he then noticed the numbness sensation and increased pain. He denies any chest pain, SOB, erythema to left arm. Chief Complaint: Upper Extremity Time Seen by MD: 14:42 Primary Care Provider: LAURA Reviewed Notes: Nurses Notes, Medications, Allergies Allergies: Coded Allergies: NO KNOWN ALLERGIES (Unverified , 04/22/24) Home Meds Active Scripts Ketoconazole (Ketoconazole) 2 % Cre, 1 APPLIC TOP DAILY, #15 GRAMS Prov:TIARA SCHMIDT 07/05/24 Acetaminophen (Tylenol) 325 Mg Cap, 325 MG PO TID for 5 Days, #30 CAP Prov:KEITH QUEEN 05/31/24 Doxycycline (Monohydrate) (DOXYCYCLINE) 150 Mg Cap, 150 MG PO BID for 5 Days, #10 CAP Prov:KEITH QUEEN 05/31/24 Ciprofloxacin Hcl (Cipro) 500 Mg Tab, 500 MG PO BID for 5 Days, #10 TAB Prov:KEITH QUEEN 05/31/24 Information Source: Patient Mode of Arrival: Ambulatory Location: Left Extremity Location: Arm Timing: Weeks (1) Severity: Moderate Able to Move Extremity: Yes Bear Weight: Fully Pain: Moderate Circumstances: Spontaneous Onset of Symptoms: Spontaneous Symptoms: Pain DVT Risk Factors: DVT Associated signs and symptoms: Arm pain Past Medical History Past Medical History (Other): Left arm DVT Surgical History: Denies all surgeries Family History Family History: Reviewed,noncontributory to illness, Family hx of DM, Family hx of Cancer Social History Smoker: Cigarettes, Less Than 1 Pack/Day Alcohol: Occasionally Drugs: Marijuana Lives In: Home Constitutional: denies: chills, diaphoresis, fatigue, fever, malaise, sweats, weakness, others EENTM: denies: blurred vision, double vision, ear bleeding, ear discharge, ear drainage, ear pain, ear ringing, eye pain, eye redness, hearing loss, mouth pain, mouth swelling, nasal discharge, nose bleeding, nose congestion, nose pain, photophobia, tearing, throat pain, throat swelling, voice changes, others Respiratory: denies: cough, hemoptysis, orthopnea, SOB at rest, shortness of breath, SOB with excertion, stridor, wheezing, others Cardiovascular: denies: chest pain, dizzy spells, diaphoresis, Dyspnea on exertion, edema, irregular heart beat, left arm pain, lightheadedness, palpitations, PND, syncope, others Gastrointestinal: denies: abdomen distended, abdominal pain, blood streaked bowels, constipated, diarrhea, dysphagia, difficulty swallowing, hematemesis, melena, nausea, poor appetite, poor fluid intake, rectal bleeding, rectal pain, vomiting, others Genitourinary: denies: burning, dysuria, flank pain, frequency, hematuria, incontinence, penile discharge, penile sore, pain, testicle pain, testicle swelling, urgency, others Neurological: denies: dizziness, fainting, headache, left sided numbness, left sided weakness, numbness, paresthesia, pre-existing deficit, right sided numbness, right sided weakness, seizure, speech problems, tingling, tremors, weakness, others Musculoskeletal: reports: others (left arm pain ); denies: back pain, gout, joint pain, joint swelling, muscle pain, muscle stiffness, neck pain Integumetry: denies: bruises, change in color, change in hair/nails, dryness, laceration, lesions, lumps, rash, wounds, others Allergic/Immunocompromised: denies: Difficulty Healing, Frequent Infections, Hives, Itching, others Hematologic/Lymphatic: denies: anemia, blood clots, easy bleeding, easy bruising, swollen glands, others Endocrine: denies: excessive hunger, excessive sweating, excessive thirst, excessive urination, flushing, intolerance to cold, intolerance to heat, unexplained weight gain, unexplained weight loss, others Psychiatric: denies: anxiety, bipolar disorder, depression, hopeless, panic disorder, schizophrenia, sleepless, suicidal, others All Other Systems: Reviewed and Negative Physical Exam General Appearance: Moderate Distress HEENT: Normal ENT Inspection, Pharynx Normal, TMs Normal Neck: Full Range of Motion, Non-Tender, Normal, Normal Inspection Respiratory: Chest Non-Tender, Lungs Clear, No Accessory Muscle Use, No Respiratory Distress, Normal Breath Sounds Cardiovascular: No Edema, No JVD, No Murmur, No Gallop, Normal Peripheral Pulses, Regular Rate/Rhythm Breast Exam: Deferred Gastrointestinal: No Organomegaly, Non Tender, No Pulsatile Mass, Normal Bowel Sounds, Soft Genitalia: Deferred Pelvic: Deferred Rectal: Deferred Extremities: No calf tenderness, Normal capillary refill, Normal inspection, Normal range of motion, Non-tender, No pedal edema Musculoskeletal : Apperance: Normal Neurologic: Alert, apron cleaner II-XII nml as Tested, No Motor Deficits, Normal Affect, Normal Mood, No Sensory Deficits Cerebellar Function: Normal Reflexes: Normal Skin: Dry, Normal Color, Warm Peripheral Pulses: 3+ Radial (R), 3+ Radial (L) Lymphatic: No Adenopathy Was a procedure done? Was a procedure done?: No Differential Diagnosis EXT Differential Diagnosis: Deep Vein Thrombosis, Sprain, Dislocation, Gout, DJD, Contusion, Strain X-Ray, Labs, Meds, VS Vital Signs Date Time Temp Pulse Resp B/P (MAP) Pulse Ox O2 Delivery O2 Flow Rate FiO2 10/27/24 15:35 98.0 66 16 122/72 (89) 95 98.0 10/27/24 15:35 66 16 95 Room Air 10/27/24 13:20 97.5 66 19 118/71 95 97.5 Patient alert. Came in because of left arm pain. History of clot. Vitals stable. Has good pulse. Good skin color. Good muscle strength. DVT study reviewed within normal limits. No leg swelling. No shortness a breath. No chest pain. Explained to the patient. Was told to follow up with his primary care physician. Was told to come back if there is any problem. Time of 1ST Reevaluation: 14:49 Reevaluation 1ST: Unchanged Patient Education/Counseling: Diagnosis, Treatment, Prognosis, Need For Follow Up Family Education/Counseling: Need For Follow Up Departure 1 Departure Time of Disposition: 15:54 Impression: Primary Impression: Muscle spasm Additional Impression: Musculoskeletal pain Disposition: 01 HOME / SELF CARE / HOMELESS Condition: Good Discharged With: Self Critical Care Note Critical Care Time?: No Stability Stability form required: No I personally scribed for MONSTER SANCHEZ MD ([email or web address]) on 10/27/24 at 14:50. Electronically submitted by Celeste Dwyer ([email or web address]). MONSTER SANCHEZ MD Oct 27, 2024 14:50
[2024-10-27 15:35] VITALS: BP 122/72; PULSE 66; RESP 16; TEMP 98; O2SAT 95
== END 2024-10-27 16:00 | disposition home or self-care (01) ==
LOC: ER 13:15
DX: M79.18 Myalgia, other site (principal); F17.210 Nicotine dependence, cigarettes, uncomplicated; Z79.899 Other long term (current) drug therapy
CPT/HCPCS: 93971

== ENCOUNTER 2024-11-27 13:29 | Outpatient (CLI) | payer MEDICAID ==
[2024-11-27 14:11] LABS: Chloride 105 mmol/L (98-107); Potassium 4.5 mmol/L (3.5-5.1); Sodium 139 mmol/L (136-145)
[2024-11-27 14:12] LABS: Anion Gap 9 (5-15); Calcium 9.7 mg/dL (8.7-10.4); Carbon Dioxide 25 mmol/L (20-31)
[2024-11-27 14:17] LABS: BUN/Creatinine Ratio 5.1 (10.0-20.0); Glucose 96 mg/dL (74-106)
[2024-11-27 14:18] LABS: Blood Urea Nitrogen 7 mg/dL (9-23)
[2024-11-27 14:27] LABS: Urine Protein, UAD Negative (Negative)
== END 2024-11-27 17:00 | disposition home or self-care (01) ==
LOC: LAB 13:29
DX: N39.0 Urinary tract infection, site not specified (principal); N45.1 Epididymitis; N50.82 Scrotal pain; R10.30 Lower abdominal pain, unspecified
CPT/HCPCS: 36415; 80048; 81001; 84153; 87086